=== PATIENT | female | born 1990 ===

== ENCOUNTER 2020-04-06 10:40 | Outpatient (REF) | payer OTHER, SELFPAY | END 2020-04-06 10:41 | disposition home or self-care (01) | LOC: HO.LAB 10:40 | PROVIDERS: Visit Provider Internal Medicine | DX: Z20.828 Contact with and (suspected) exposure to other viral communicable diseases (principal) | CPT/HCPCS: C9803; U0003 ==

== ENCOUNTER 2020-12-22 16:46 | Emergency (ER) | payer OTHER, SELFPAY ==
[2020-12-22 17:35] VITALS: BP 124/75; PULSE 108; RESP 20; TEMP 37; O2SAT 100; BMI 25.6
--- NOTE | 2020-12-22 21:13 | ED_ITS ---
HPI - URI/Sore Throat General Chief Complaint: Fever Stated Complaint: covid symptoms Time Seen by Provider: 12/22/20 17:13 Source: patient Mode of arrival: ambulatory Limitations: language barrier (No tester electronic scale on duty, patient spoke fairly decent Macedonian.) History of Present Illness HPI Narrative: Patient is a 30-year-old female with no significant past medical history complaining of 2 days of a fever with a T-max of 100 degrees, body aches, sinus congestion and headache x2 days. She is also complaining of a sore throat. She denies any shortness of breath, nausea vomiting or diarrhea. She is fully vaccinated for COVID. She denies any sick contacts. Related Data Allergies Allergy/AdvReac Type Severity Reaction Status Date / Time No Known Allergies Allergy Unverified 02/06/20 18:49 [No Known Allergies*] Review of Systems Review of Systems: Yes all other systems are reviewed and are negative PMFSH Past Medical History Medical History No known health problems Social History Social History Advance Directives: No Patient : No Physical Exam Vital Signs: Vital Signs: Last Vital Signs Temp 98.6 F 12/22/20 17:35 Pulse 108 H 12/22/20 17:35 Resp 20 12/22/20 17:35 BP 124/75 12/22/20 17:35 Pulse Ox 100 12/22/20 17:35 Body Mass Index 25.6 Const: General: cooperative, healthy appearing, comfortable, no acute distress and well developed Orientation/consciousness: patient oriented x3 Limitations: no limitations HENMT: Head: Yes normal to inspection Eyes: General: appearance normal, both eyes and all related structures Neck: Neck: Yes normal visual inspection and Yes full ROM Resp: Effort & Inspection: normal respiratory effort and able to speak in complete sentences Auscultation: clear to auscultation bilaterally Cardio: Rate: regular rate Rhythm: regular rhythm Heart sounds: normal S1 and S2 GI: Inspection: Yes normal to inspection Skin: General skin exam: no rashes or lesions noted Neuro: General: patient oriented x3 Extrem: General: Yes normal to inspection Course Course Course Narrative: Patient is a 30-year-old female with no significant past medical history complaining of 2 days of a fever with a T-max of 100 degrees, body aches, sinus congestion and headache x2 days. Vital signs stable except for patient was slightly tachycardic upon arrival to the ED. repeat vitals are stable but again tachy, discussed with patient has lately from dehydration and to make sure she stays well hydrated. Advised if it continues, to call her PCP or return to the ED. Will swab patient and send home, will call if she is positive for COVID. MDM - URI/Sore Throat Lab Data Attestation: I reviewed the patient's lab results. Labs: Lab Results 12/22/20 Range/Units 21:26 COVID-19 (DENISE) Negative (Negative) COVID-19 Clin Com See Note Discharge Plan Discharge Clinical Impression: Upper respiratory infection Qualifiers: URI type: unspecified viral URI Qualified Code(s): J06.9 - Acute upper respiratory infection, unspecified Patient Disposition: Home, Self-Care Instructions: Upper Respiratory Infection (ED), COVID-19 (Coronavirus Disease 2019) (ED) Additional Instructions: We have test you for COVID, I will call you if your test comes back positive. I have attached COVID instructions for you to have just in case her test does come back positive. In the meanwhile, please treat your symptoms in be was sure stay well hydrated. If you have any shortness of breath, chest pain or fever you cannot control with ibuprofen or acetaminophen, please return to the emergency department. Stand Alone Forms: Work/School Release Print Language: Sudanese
[2020-12-22 21:44] LABS: COVID-19 Test Negative (Negative); IDNOW Serial# 08D9AD1C
== END 2020-12-22 21:56 | disposition home or self-care (01) ==
PROVIDERS: Emergency Provider Emergency Medicine
DX: J06.9 Acute upper respiratory infection, unspecified (principal); R50.9 Fever, unspecified; M79.10 Myalgia, unspecified site; Z20.822 Contact with and (suspected) exposure to COVID-19
CPT/HCPCS: 36415; 87635; 99283

== ENCOUNTER 2021-03-16 13:18 | Outpatient (REF) | payer OTHER, SELFPAY | END 2021-03-16 13:19 | disposition home or self-care (01) | LOC: HO.LAB 13:18 | PROVIDERS: PCP Internal Medicine; Visit Provider Internal Medicine | DX: Z20.822 Contact with and (suspected) exposure to COVID-19 (principal) | CPT/HCPCS: C9803; U0003; U0005 ==

== ENCOUNTER 2021-05-20 09:04 | Outpatient (REF) | payer OTHER, SELFPAY ==
--- NOTE | ~2021-05-20 | US_ITS ---
EXAMINATION: US PELVIS CLINICAL INFORMATION: N94.10 - Unspecified dyspareunia. Age 30. Prior history , tubal ligation. LMP 05/13/2021. COMPARISON: Pelvic ultrasound 02/17/2015. TECHNIQUE: Ultrasound of the pelvis is performed using both transabdominal and transvaginal transducers along with Doppler. Transvaginal imaging is performed due to inadequate visualization transabdominally. FINDINGS: Uterus: The uterus is anteverted and measures 7.2 x 5.0 x 6.6 cm. Volume 175 mL. The double wall endometrial thickness is 10 mm. Probable arcuate configuration. The uterus is smooth in contour and has normal myometrial echogenicity. No visible fibroid. There are a few tiny nabothian cysts in the cervix, under 5 mm. Adnexa: Both ovaries are visualized. There is normal color flow to the adnexa. There is no ovarian torsion. There is no pelvic ascites or fluid collection. Right ovary measures 2.9 x 1.9 x 2.5 cm. Volume 7 mL. Left ovary measures 3.0 x 1.7 x 2.1 cm. Volume 6 mL. US/US pelvic and transvaginal IMPRESSION: Unremarkable pelvic ultrasound. No adnexal mass or ascites.
== END 2021-05-20 09:05 | disposition home or self-care (01) ==
LOC: HO.US 09:04
PROVIDERS: PCP Internal Medicine; Visit Provider Internal Medicine
DX: R10.31 Right lower quadrant pain (principal); N94.10 Unspecified dyspareunia
CPT/HCPCS: 76830; 76856

== ENCOUNTER 2021-05-27 08:57 | Outpatient (REF) | payer OTHER, SELFPAY ==
[2021-05-27 12:00] LABS: Binax Internal Control QC Valid; Binax Now Covid-19 Ag Positive (Negative)
== END 2021-05-27 08:58 | disposition home or self-care (01) ==
LOC: HO.LAB 08:57
PROVIDERS: Visit Provider Internal Medicine
DX: Z20.822 Contact with and (suspected) exposure to COVID-19 (principal)
CPT/HCPCS: 36415; C9803

== ENCOUNTER 2021-06-25 13:45 | Outpatient (REF) | payer OTHER, SELFPAY ==
[2021-06-26 12:26] LABS: BV Int Neg Control Negative (Negative); BV Int Pos Control Positive (Positive)
== END 2021-06-25 13:46 | disposition home or self-care (01) ==
LOC: HO.LNP 13:45
PROVIDERS: Visit Provider Nurse Practitioner Family
DX: N89.8 Other specified noninflammatory disorders of vagina (principal)
CPT/HCPCS: 87480; 87510; 87660

== ENCOUNTER 2022-01-08 14:20 | Emergency (ER) | payer OTHER, SELFPAY ==
[2022-01-08 14:23] VITALS: BP 147/96; PULSE 99; RESP 18; TEMP 37; O2SAT 100; BMI 27.4
== END 2022-01-08 19:54 | disposition left against medical advice (07) ==
PROVIDERS: Emergency Provider Emergency Medicine
DX: M25.551 Pain in right hip (principal)
CPT/HCPCS: 99281

== ENCOUNTER 2022-01-12 10:42 | Outpatient (REF) | payer OTHER, SELFPAY ==
[2022-01-13 09:10] LABS: CT PCR NOT DETECTED (Not Detect.); NG PCR NOT DETECTED (Not Detect.)
[2022-01-13 10:49] LABS: BV Int Neg Control Negative (Negative); BV Int Pos Control Positive (Positive)
[2022-01-15 10:16] LABS: HPV mRNA E6/E7 rflx Not Detected (Not Detected)
== END 2022-01-12 10:43 | disposition home or self-care (01) ==
LOC: HO.LAB 10:42
PROVIDERS: Visit Provider Advanced Practice Midwife
DX: Z01.419 Encounter for gynecological examination (general) (routine) without abnormal findings (principal); N92.1 Excessive and frequent menstruation with irregular cycle; Z20.2 Contact with and (suspected) exposure to infections with a predominantly sexual mode of transmission
CPT/HCPCS: 87480; 87491; 87510; 87591; 87624; 87660; 88142

== ENCOUNTER 2022-02-18 13:42 | Outpatient (REF) | payer OTHER, SELFPAY ==
--- NOTE | ~2022-02-18 | US_ITS ---
EXAMINATION: US PELVIS CLINICAL INFORMATION: Right lower quadrant pain; the last menstrual period was on 02/04/2022. COMPARISON: None TECHNIQUE: Ultrasound of the pelvis is performed using both transabdominal and transvaginal transducers along with Doppler. Transvaginal imaging is performed due to inadequate visualization transabdominally. FINDINGS: UTERUS: The uterus is anteverted and measures 8.6 x 5.1 x 7.1 cm. The uterus shows an arcuate configuration. Nabothian cysts are seen within the cervix. The double wall endometrial thickness is 1.2 mm. The uterus is smooth in contour and has normal myometrial echogenicity. No visible fibroid. ADNEXA: Both ovaries are visualized. There is normal color flow to the adnexa. There is no ovarian torsion. There is no pelvic ascites or fluid collection. Right ovary measures 2.6 x 2.0 x 2.2 cm (volume 5.8 mL). Left ovary measures 3.0 x 2.1 x 2.1 cm (volume 6.8 mL). A 1.4 x 1.1 x 1.6 cm corpus luteum cyst is incidentally noted. US/US pelvic and transvaginal IMPRESSION: 1. Nabothian cysts are seen within the cervix. 2. A 1.6 cm in maximal diameter left ovarian benign, corpus luteum cyst is seen, for which no imaging follow-up is recommended. 3. The uterus shows an arcuate configuration.
== END 2022-02-18 13:43 | disposition home or self-care (01) ==
LOC: HO.HMGCX 13:42
PROVIDERS: Visit Provider Advanced Practice Midwife
DX: N92.0 Excessive and frequent menstruation with regular cycle (principal)
CPT/HCPCS: 76830; 76856

== ENCOUNTER → 2022-03-21 13:18 | Outpatient (BNVA) | payer OTHER, SELFPAY | PROVIDERS: PCP Internal Medicine; Visit Provider Advanced Practice Midwife | DX: N92.0 Excessive and frequent menstruation with regular cycle (principal); Z71.2 Person consulting for explanation of examination or test findings | CPT/HCPCS: 99212 ==

== ENCOUNTER 2022-03-22 08:54 | Outpatient (REF) | payer OTHER, SELFPAY ==
[2022-03-22 09:12] LABS: MANUAL DIFF FLAG NO
[2022-03-22 09:27] LABS: Hematocrit 34.2 % (37.0-47.0); Hemoglobin 10.5 g/dl (12.0-16.0); Mean Corpuscular HGB Conc 30.7 g/dl (31.0-35.0); Mean Corpuscular Hemoglobin 24.9 pg (27.0-33.0); Platelet Count 325 X10*3/uL (160-400); Red Blood Count 4.22 X10*6/uL (4.20-5.50); Red Cell Distribution Width 14.8 % (11.0-16.0); White Blood Count 4.7 X10*3/uL (4.8-10.8)
[2022-03-22 09:28] LABS: Basophils Absolute Auto 0.1 X10*3/uL (0.0-0.2); Basophils Percent Auto 1.1 % (0-2); Eosinophils Absolute Auto 0.1 X10*3/uL (0.0-0.4); Eosinophils Percent Auto 2.8 % (0-4); Hematocrit 34.9 % (37.0-47.0); Hemoglobin 10.4 g/dl (12.0-16.0); Lymphocytes Absolute Auto 1.3 X10*3/uL (1.2-4.9); Mean Corpuscular HGB Conc 29.8 g/dl (31.0-35.0); Mean Corpuscular Hemoglobin 24.2 pg (27.0-33.0); Mean Corpuscular Volume 81.4 fL (80.0-98.0); Monocytes Absolute Auto 0.4 X10*3/uL (0.1-1.2); Neutrophils Absolute Auto 2.8 x10*3/uL (2.0-8.3); Neutrophils Percent Auto 60.1 % (45-73); Platelet Count 323 X10*3/uL (160-400); Red Blood Count 4.29 X10*6/uL (4.20-5.50); Red Cell Distribution Width 14.8 % (11.0-16.0); White Blood Count 4.7 X10*3/uL (4.8-10.8)
[2022-03-22 09:53] LABS: Alanine Aminotransferase 18 U/L (0-31); Aspartate Amino Transferase 17 U/L (5-31); Cholesterol 184 mg/dL; HDL Cholesterol 44 mg/dL; Iron 37 mcg/dL (30-160); LDL Cholesterol Calculated 124 mg/dl; Percent Iron Saturation 9 % (15-50); Total Iron Binding Capacity 432 mcg/dL (228-428); Triglycerides 83 mg/dL; Unsaturated Iron Binding 395 ug/dL
[2022-03-22 10:13] LABS: HBc Num1 0.07 S/CO (0.00-0.79); HIV AB/AG Nonreactive (Nonreactive); HIV Num 1 0.08 S/CO (0.00-0.99); Hepatitis B Core Antibody Nonreactive (Nonreactive); ~HepC Num1 0.17 S/CO (0.00-0.79); ~Hepatitis C Antibody Nonreactive (Nonreactive)
[2022-03-22 10:14] LABS: Thyroid Stimulating Hormone 0.86 uIU/mL (0.32-4.0)
[2022-03-22 10:15] LABS: TSH reflex Free T4 0.86 uIU/mL (0.32-4.0); Vitamin D 25-OH Total 7.8 ng/mL (>30)
[2022-03-22 10:52] LABS: Folate 9.5 ng/mL (> or = 4.0); Vitamin B12 496 pg/mL (200-900)
[2022-03-23 07:51] LABS: Syphilis Screen Nonreactive (Nonreactive)
== END 2022-03-22 08:55 | disposition home or self-care (01) ==
LOC: HO.LAB 08:54
PROVIDERS: Absent Provider Internal Medicine; PCP Internal Medicine; Visit Provider Advanced Practice Midwife
DX: Z00.01 Encounter for general adult medical examination with abnormal findings (principal); Z11.4 Encounter for screening for human immunodeficiency virus [HIV]; N92.1 Excessive and frequent menstruation with irregular cycle; R53.83 Other fatigue; Z20.2 Contact with and (suspected) exposure to infections with a predominantly sexual mode of transmission
CPT/HCPCS: 36415; 80061; 82306; 82607; 82746; 83540; 84443; 84450; 84460; 85025; 85027; 86704; 86780; 86803; 87389

== ENCOUNTER 2022-06-29 09:34 | Emergency (ER) | payer OTHER, SELFPAY ==
[2022-06-29 09:35] VITALS: BP 137/87; PULSE 130; RESP 18; TEMP 36.1; O2SAT 98; BMI 27.4
--- NOTE | 2022-06-29 10:11 | ED.NAVMDI ---
HPI - Nausea/Vomiting/Diarrhea General Chief complaint: Nausea/Vomiting/Diarrhea Stated complaint: excessive diarrhea Time Seen by Provider: 06/29/22 10:05 Source: patient Mode of arrival: ambulatory Limitations: no limitations History of Present Illness HPI Narrative: This is a 31 years old female presented to the ED with chief complaint of watery diarrhea since yesterday she also has some nausea MD elicited complaint: nausea and diarrhea Onset (ago): day(s) (1) Description of diarrhea: watery Associated nausea: Yes Quality: cramping Associated symptoms: denies other symptoms Related Data Previous Rx's Medication Instructions Recorded cholecalciferol (vitamin D3) 1,250 1,250 mcg PO QWEEK 3 months #13 04/05/22 mcg (50,000 unit) capsule caps ferrous sulfate 325 mg (65 mg 325 mg PO DAILY #90 tabs 04/05/22 iron) tablet,delayed release Allergies Allergy/AdvReac Type Severity Reaction Status Date / Time No Known Allergies Allergy Verified 04/03/22 22:57 [No Known Allergies*] Review of Systems Constitutional: Constitutional: Reports no additional constitutional complaints Cardiovascular: Cardiovascular: Reports no additional cardiovascular complaints Gastrointestinal: Gastrointestinal: Reports no additional gastrointestinal complaints and Reports nausea PMFSH Past Medical History Medical History Dyspareunia, female Fatigue Muscle strain of right upper back Surgical History Hx of tubal ligation Family History Family History Other No pertinent family history in first degree relatives Social History Social History Housing: House Alcohol intake: unknown Patient Tobacco Use Status: Never used Tobacco Smoked in Last 30 Days: No e-Cigarette/Vaping Use: Never Used Use of substances other than those prescribed or required for medical reasons: Unknown Advance Directives: No Advance Directives Information Provided: Yes Current occupational status: employed Cognitive needs: No Hearing needs: No Vision needs: No Physical Exam Vital Signs: Vital Signs: Last Vital Signs Temp 99.2 F 06/29/22 12:20 Pulse 108 H 06/29/22 12:20 Resp 18 06/29/22 14:00 BP 114/63 06/29/22 12:20 Pulse Ox 98 06/29/22 09:35 O2 Del Method 06/29/22 12:20 BMI result Body Mass Index 27.4 Const: General: cooperative, comfortable, no acute distress and well developed Nutritional Appearance: well nourished Orientation/consciousness: patient oriented x3 HEENT: Head: Yes normal to inspection General nose exam: Normal external nose present Face and sinus: Yes normal facial exam Mouth: Normal oral and palatal mucosa present Neck: Neck: Yes normal visual inspection and Yes full ROM Chest: Chest palpation & inspection: normal inspection of the chest Resp: Auscultation: clear to auscultation bilaterally Cardio: Jugular venous distension: no JVD Rate: regular rate Rhythm: regular rhythm GI: Inspection: Yes normal to inspection Palpation (GI): Soft to palpation, not firm, nontender and no guarding Skin: General skin exam: no rashes or lesions noted, elasticity normal and turgor normal Neuro: General: patient oriented x3 Cranial nerves: Yes CN's II-XII intact bilaterally Course Reevaluation(s) Reevaluation #1: feels better Time: 13:55 Medications Administered Discontinued Medications Generic Name Dose Route Start Last Admin Trade Name Freq PRN Reason Stop Dose Admin Sodium Chloride 1,000 mls @ 999 mls/hr 06/29/22 10:15 06/29/22 12:14 Ns IVCONT 06/29/22 11:15 Infused .Q1H1M QUINN Infusion Loperamide HCl 2 mg 06/29/22 10:10 06/29/22 10:37 Loperamide Hcl 2 Mg Capsule PO 06/29/22 10:11 2 mg ONCE ONE Administration Ondansetron HCl 4 mg 06/29/22 10:10 06/29/22 10:34 Ondansetron Hcl 4 Mg/2 Ml Vial IVPUSH 06/29/22 10:11 4 mg ONCE ONE Administration Medical Decision Making Medical Decision Making [facility] Narrative: Patient presented with diarrhea and nausea will get labs will hydrate and reassess Differential Diagnosis Differential Diagnoses: The differential diagnosis associated with the presentation includes Admission/Observation Consideration of admission/observation: Escalation of care including admission/observation considered Lab Data MDM Lab Attestation statement: I reviewed the patient's lab results. 06/29/22 10:29 06/29/22 10:29 Labs: Lab Results 06/29/22 06/29/22 06/29/22 Range/Units 10:25 10:25 10:25 WBC (4.8-10.8) X10*3/uL RBC (4.20-5.50) X10*6/uL Hgb (12.0-16.0) g/dl Hct (37.0-47.0) % MCV (80.0-98.0) fL MCH (27.0-33.0) pg MCHC (31.0-35.0) g/dl RDW (11.0-16.0) % Plt Count (160-400) X10*3/uL MPV (9.4-12.3) fL Immature Gran % (Auto) (0.0-0.4) % Neut % (Auto) (45-73) % Lymph % (Auto) (20-40) % [place] % (Auto) (2-11) % Eos % (Auto) (0-4) % Baso % (Auto) (0-2) % Lymph # (Auto) (1.2-4.9) X10*3/uL [place] # (Auto) (0.1-1.2) X10*3/uL Eos # (Auto) (0.0-0.4) X10*3/uL Baso # (Auto) (0.0-0.2) X10*3/uL Abs Immat Gran (auto) (0.00-0.03) X10*3/uL Absolute Neuts (auto) (2.0-8.3) x10*3/uL Absolute Nucleated RBC (0.0-0.012) X10*3/uL Nucleated RBC % (auto) (0.0-0.2) /100WBC Sodium (135-145) mmol/L Potassium (3.3-5.1) mmol/L Chloride (96-108) mmol/L Carbon Dioxide (22-29) mmol/L Anion Gap (12-20) BUN (9-16) mg/dL Creatinine (0.5-1.4) mg/dL Estim Creat Clear Calc Estimated GFR Random Glucose (60-115) mg/dL Calcium (8.4-10.2) mg/dL Total Bilirubin (0.0-1.0) mg/dL AST (5-31) U/L ALT (0-31) U/L Alkaline Phosphatase (39-117) U/L Total Protein (6.5-8.0) g/dL Albumin (3.5-5.0) g/dL Beta HCG, Quant mIU/mL Urine Color Urine Appearance Urine pH (5.0-9.0) Ur Specific [place] (1.005-1.025) Urine Protein (Neg-Trace) mg/dL Urine Glucose (UA) (Negative) mg/dL Urine Ketones (Negative) mg/dL Urine Blood (Negative) Urine Nitrite (Negative) Ur Leukocyte Esterase (Negative) Urine Test (NEGATIVE) Stool Leukocytes, Qual NEGATIVE (NEGATIVE) Stl C. cayetanensis PCR Not Detected (Not Detect.) Stool Rotavirus A PCR Not Detected (Not Detect.) Stl Adenov F 40/41 PCR Not Detected (Not Detect.) Stool Astrovirus (PCR) Not Detected (Not Detect.) Stool Campylobacter PCR Not Detected (Not Detect.) Stool Cryptosporidium PCR Not Detected (Not Detect.) Stl Sh Tox Pr E STEC PCR Not Detected (Not Detect.) Stool E coli O157 PCR Not applicable (Not Detect.) Stl Enterotoxigenic E PCR Not Detected (Not Detect.) Stool EPEC (PCR) Not Detected (Not Detect.) Stool EAEC (PCR) Not Detected (Not Detect.) Stl E. histolytica PCR Not Detected (Not Detect.) Stool Giardia Lamblia PCR Not Detected (Not Detect.) Stl P. shigelloides PCR Not Detected (Not Detect.) Stool Salmonella PCR Not Detected (Not Detect.) Stool Sapovirus (PCR) Not Detected (Not Detect.) Stl Shigella/EIEC PCR Not Detected (Not Detect.) St Y.enterocolitica PCR Not Detected (Not Detect.) Stool Vibrio (PCR) Not Detected (Not Detect.) Stl Vibrio cholerae PCR Not Detected (Not Detect.) Stl Norovirus GI/GII PCR Detected A (Not Detect.) C. difficile Tox B Gene NEGATIVE (Negative) 06/29/22 06/29/22 06/29/22 Range/Units 10:29 10:29 11:35 WBC 5.8 (4.8-10.8) X10*3/uL RBC 4.64 (4.20-5.50) X10*6/uL Hgb 13.2 D (12.0-16.0) g/dl Hct 39.6 (37.0-47.0) % MCV 85.3 (80.0-98.0) fL MCH 28.4 (27.0-33.0) pg MCHC 33.3 (31.0-35.0) g/dl RDW 15.0 (11.0-16.0) % Plt Count 267 (160-400) X10*3/uL MPV 11.0 (9.4-12.3) fL Immature Gran % (Auto) 0.2 (0.0-0.4) % Neut % (Auto) 78.8 H (45-73) % Lymph % (Auto) 12.7 L (20-40) % [place] % (Auto) 6.8 (2-11) % Eos % (Auto) 1.2 (0-4) % Baso % (Auto) 0.3 (0-2) % Lymph # (Auto) 0.7 L (1.2-4.9) X10*3/uL [place] # (Auto) 0.4 (0.1-1.2) X10*3/uL Eos # (Auto) 0.1 (0.0-0.4) X10*3/uL Baso # (Auto) 0.0 (0.0-0.2) X10*3/uL Abs Immat Gran (auto) 0.01 (0.00-0.03) X10*3/uL Absolute Neuts (auto) 4.5 (2.0-8.3) x10*3/uL Absolute Nucleated RBC 0.000 (0.0-0.012) X10*3/uL Nucleated RBC % (auto) 0.0 (0.0-0.2) /100WBC Sodium 136 (135-145) mmol/L Potassium 3.8 (3.3-5.1) mmol/L Chloride 106 (96-108) mmol/L Carbon Dioxide 19 L (22-29) mmol/L Anion Gap 15 (12-20) BUN 16 (9-16) mg/dL Creatinine 0.76 (0.5-1.4) mg/dL Estim Creat Clear Calc 95.1 Estimated GFR > 60 Random Glucose 97 (60-115) mg/dL Calcium 9.5 (8.4-10.2) mg/dL Total Bilirubin 1.5 H (0.0-1.0) mg/dL AST 19 (5-31) U/L ALT 27 (0-31) U/L Alkaline Phosphatase 57 (39-117) U/L Total Protein 8.1 H (6.5-8.0) g/dL Albumin 4.7 (3.5-5.0) g/dL Beta HCG, Quant < 2 mIU/mL Urine Color Yellow Urine Appearance Turbid Urine pH 5.5 (5.0-9.0) Ur Specific [place] >= 1.030 H (1.005-1.025) Urine Protein Trace (Neg-Trace) mg/dL Urine Glucose (UA) Negative (Negative) mg/dL Urine Ketones Negative (Negative) mg/dL Urine Blood Negative (Negative) Urine Nitrite Negative (Negative) Ur Leukocyte Esterase Negative (Negative) Urine Test (NEGATIVE) Stool Leukocytes, Qual (NEGATIVE) Stl C. cayetanensis PCR (Not Detect.) Stool Rotavirus A PCR (Not Detect.) Stl Adenov F 40/41 PCR (Not Detect.) Stool Astrovirus (PCR) (Not Detect.) Stool Campylobacter PCR (Not Detect.) Stool Cryptosporidium PCR (Not Detect.) Stl Sh Tox Pr E STEC PCR (Not Detect.) Stool E coli O157 PCR (Not Detect.) Stl Enterotoxigenic E PCR (Not Detect.) Stool EPEC (PCR) (Not Detect.) Stool EAEC (PCR) (Not Detect.) Stl E. histolytica PCR (Not Detect.) Stool Giardia Lamblia PCR (Not Detect.) Stl P. shigelloides PCR (Not Detect.) Stool Salmonella PCR (Not Detect.) Stool Sapovirus (PCR) (Not Detect.) Stl Shigella/EIEC PCR (Not Detect.) St Y.enterocolitica PCR (Not Detect.) Stool Vibrio (PCR) (Not Detect.) Stl Vibrio cholerae PCR (Not Detect.) Stl Norovirus GI/GII PCR (Not Detect.) C. difficile Tox B Gene (Negative) 06/29/22 Range/Units 11:35 WBC (4.8-10.8) X10*3/uL RBC (4.20-5.50) X10*6/uL Hgb (12.0-16.0) g/dl Hct (37.0-47.0) % MCV (80.0-98.0) fL MCH (27.0-33.0) pg MCHC (31.0-35.0) g/dl RDW (11.0-16.0) % Plt Count (160-400) X10*3/uL MPV (9.4-12.3) fL Immature Gran % (Auto) (0.0-0.4) % Neut % (Auto) (45-73) % Lymph % (Auto) (20-40) % [place] % (Auto) (2-11) % Eos % (Auto) (0-4) % Baso % (Auto) (0-2) % Lymph # (Auto) (1.2-4.9) X10*3/uL [place] # (Auto) (0.1-1.2) X10*3/uL Eos # (Auto) (0.0-0.4) X10*3/uL Baso # (Auto) (0.0-0.2) X10*3/uL Abs Immat Gran (auto) (0.00-0.03) X10*3/uL Absolute Neuts (auto) (2.0-8.3) x10*3/uL Absolute Nucleated RBC (0.0-0.012) X10*3/uL Nucleated RBC % (auto) (0.0-0.2) /100WBC Sodium (135-145) mmol/L Potassium (3.3-5.1) mmol/L Chloride (96-108) mmol/L Carbon Dioxide (22-29) mmol/L Anion Gap (12-20) BUN (9-16) mg/dL Creatinine (0.5-1.4) mg/dL Estim Creat Clear Calc Estimated GFR Random Glucose (60-115) mg/dL Calcium (8.4-10.2) mg/dL Total Bilirubin (0.0-1.0) mg/dL AST (5-31) U/L ALT (0-31) U/L Alkaline Phosphatase (39-117) U/L Total Protein (6.5-8.0) g/dL Albumin (3.5-5.0) g/dL Beta HCG, Quant mIU/mL Urine Color Urine Appearance Urine pH (5.0-9.0) Ur Specific [place] (1.005-1.025) Urine Protein (Neg-Trace) mg/dL Urine Glucose (UA) (Negative) mg/dL Urine Ketones (Negative) mg/dL Urine Blood (Negative) Urine Nitrite (Negative) Ur Leukocyte Esterase (Negative) Urine Test NEGATIVE (NEGATIVE) Stool Leukocytes, Qual (NEGATIVE) Stl C. cayetanensis PCR (Not Detect.) Stool Rotavirus A PCR (Not Detect.) Stl Adenov F 40/41 PCR (Not Detect.) Stool Astrovirus (PCR) (Not Detect.) Stool Campylobacter PCR (Not Detect.) Stool Cryptosporidium PCR (Not Detect.) Stl Sh Tox Pr E STEC PCR (Not Detect.) Stool E coli O157 PCR (Not Detect.) Stl Enterotoxigenic E PCR (Not Detect.) Stool EPEC (PCR) (Not Detect.) Stool EAEC (PCR) (Not Detect.) Stl E. histolytica PCR (Not Detect.) Stool Giardia Lamblia PCR (Not Detect.) Stl P. shigelloides PCR (Not Detect.) Stool Salmonella PCR (Not Detect.) Stool Sapovirus (PCR) (Not Detect.) Stl Shigella/EIEC PCR (Not Detect.) St Y.enterocolitica PCR (Not Detect.) Stool Vibrio (PCR) (Not Detect.) Stl Vibrio cholerae PCR (Not Detect.) Stl Norovirus GI/GII PCR (Not Detect.) C. difficile Tox B Gene (Negative) Discharge Plan Discharge Clinical Impression: Diarrhea, Norovirus Patient Disposition: Home, Self-Care Instructions: Acute Diarrhea (ED) Prescriptions: No Action ferrous sulfate 325 mg (65 mg iron) tablet,delayed release (DR/EC) 325 mg PO DAILY Qty: 90 0RF cholecalciferol (vitamin D3) 1,250 mcg (50,000 unit) capsule 1,250 mcg PO QWEEK 90 Days Qty: 13 0RF Referrals: Oralia Youngblood MD [Primary Care Provider] - Stand Alone Forms: Work/School Release Interventions: ED Discharge Assessment Last Done: 06/29/22 14:08 Discharge Date/Time: 06/29/22 14:09
[2022-06-29 10:16] VITALS: RESP 18
[2022-06-29] MEDS: 0.9 % Sodium Chloride 1,000 ML 999 ML IVCONT (10:31)
[2022-06-29] MEDS: ondansetron HCL 4 MG/2 ML VIAL IVPUSH (10:34)
[2022-06-29 10:35] LABS: MANUAL DIFF FLAG NO
[2022-06-29] MEDS: Loperamide HCl 2 MG CAPSULE PO (10:37)
[2022-06-29 10:39] LABS: Basophils Percent Auto 0.3 % (0-2); Eosinophils Absolute Auto 0.1 X10*3/uL (0.0-0.4); Eosinophils Percent Auto 1.2 % (0-4); Hematocrit 39.6 % (37.0-47.0); Hemoglobin 13.2 g/dl (12.0-16.0); Imm Gran Abs Auto 0.01 X10*3/uL (0.00-0.03); Imm Gran Pct Auto 0.2 % (0.0-0.4); Lymphocytes Absolute Auto 0.7 X10*3/uL (1.2-4.9); Lymphocytes Percent Auto 12.7 % (20-40); Mean Corpuscular HGB Conc 33.3 g/dl (31.0-35.0); Mean Corpuscular Hemoglobin 28.4 pg (27.0-33.0); Mean Corpuscular Volume 85.3 fL (80.0-98.0); Monocytes Absolute Auto 0.4 X10*3/uL (0.1-1.2); Monocytes Percent Auto 6.8 % (2-11); Neutrophils Absolute Auto 4.5 x10*3/uL (2.0-8.3); Neutrophils Percent Auto 78.8 % (45-73); Platelet Count 267 X10*3/uL (160-400); Red Blood Count 4.64 X10*6/uL (4.20-5.50); White Blood Count 5.8 X10*3/uL (4.8-10.8)
[2022-06-29 11:37] LABS: CDiff Gene PCR NEGATIVE (Negative)
[2022-06-29 12:09] LABS: UPreg QC Valid YES; Urine Pregnancy NEGATIVE (NEGATIVE)
[2022-06-29 12:20] VITALS: BP 114/63; PULSE 108; RESP 20; TEMP 37.3
[2022-06-29 12:34] LABS: Adenovirus F 40/41 Not Detected (Not Detect.); Astrovirus Not Detected (Not Detect.); Campylobacter Not Detected (Not Detect.); Cryptosporidium Not Detected (Not Detect.); Cyclospora cayetanensis Not Detected (Not Detect.); E. coli EAEC Not Detected (Not Detect.); E. coli EPEC Not Detected (Not Detect.); E. coli ETEC Not Detected (Not Detect.); E. coli STEC Not Detected (Not Detect.); Entamoeba histolytica Not Detected (Not Detect.); Giardia lamblia Not Detected (Not Detect.); Leukocytes Stool Qualitative NEGATIVE (NEGATIVE); Plesiomonas shigelloides Not Detected (Not Detect.); Rotavirus A Not Detected (Not Detect.); Salmonella Not Detected (Not Detect.); Sapovirus Not Detected (Not Detect.); Shigella sp./EIEC Not Detected (Not Detect.); Vibrio Not Detected (Not Detect.); Vibrio Cholerae Not Detected (Not Detect.); Yersinia enterocolitica Not Detected (Not Detect.)
--- NOTE | 2022-06-29 12:50 | PC.NURSE ---
contact made to Lab. Per Kayla Specimen shows received-will check with lab techs.
[2022-06-29 13:09] LABS: Norovirus GI/GII Detected (Not Detect.)
[2022-06-29 13:12] LABS: Alanine Aminotransferase 27 U/L (0-31); Albumin Level 4.7 g/dL (3.5-5.0); Alkaline Phosphatase 57 U/L (39-117); Anion Gap 15 (12-20); Aspartate Amino Transferase 19 U/L (5-31); Bilirubin Total 1.5 mg/dL (0.0-1.0); Blood Urea Nitrogen 16 mg/dL (9-16); Calcium 9.5 mg/dL (8.4-10.2); Carbon Dioxide 19 mmol/L (22-29); Chloride 106 mmol/L (96-108); Creatinine Clr Calc Pharmacy 95.1; Estimated Glomerular Filt Rate > 60; Glucose Random 97 mg/dL (60-115); HCG Quantitative < 2 mIU/mL; Potassium 3.8 mmol/L (3.3-5.1); Sodium 136 mmol/L (135-145); Total Protein 8.1 g/dL (6.5-8.0)
--- NOTE | 2022-06-29 13:23 | MHC.IC ---
Patient is positive for Norovirus. Please wash hands with SOAP and WATER after all care and use BLEACH to sanitize surfaces.
[2022-06-29 14:00] VITALS: RESP 18
[2022-06-29 15:31] LABS: Appearance Urine Turbid; Color Urine Yellow; Glucose Urine UA Negative (Negative); Leukocyte Esterase Urine Negative (Negative); Nitrite Urine Negative (Negative); PH 5.5 (5.0-9.0); Specific Gravity - Urine >= 1.030 (1.005-1.025); Urine Blood Negative (Negative); Urine Ketones Negative (Negative); Urine Protein Trace mg/dL (Neg-Trace)
== END 2022-06-29 14:09 | disposition home or self-care (01) ==
PROVIDERS: Emergency Provider Emergency Medicine; PCP Internal Medicine
DX: R19.7 Diarrhea, unspecified (principal); A08.11 Acute gastroenteropathy due to Norwalk agent; R11.0 Nausea
CPT/HCPCS: 36415; 80053; 81003; 81025; 84702; 85025; 87493; 87507; 89055; 96361; 96374; 99284; J2405

== ENCOUNTER 2022-09-13 12:02 | Outpatient (REF) | payer OTHER, SELFPAY ==
[2022-09-13 14:40] LABS: Vitamin D 25-OH Total 15.6 ng/mL (>30)
== END 2022-09-13 12:03 | disposition home or self-care (01) ==
LOC: HO.HMGCLDS 12:02
PROVIDERS: PCP Internal Medicine; Visit Provider Internal Medicine
DX: E55.9 Vitamin D deficiency, unspecified (principal); R53.83 Other fatigue
CPT/HCPCS: 36415; 82306; 84443

== ENCOUNTER 2022-10-13 19:11 | Emergency (ER) | payer OTHER, SELFPAY ==
--- NOTE | ~2022-10-13 | XR_ITS ---
EXAMINATION: XR CHEST CLINICAL INFORMATION: Cough COMPARISON: None available. TECHNIQUE: 2 views of the chest were obtained. FINDINGS: No significant abnormality is noted involving the heart, lungs, mediastinum, bony thorax or soft tissues. XR/XR chest 2V IMPRESSION: Unremarkable examination.
[2022-10-13 19:14] VITALS: BP 135/94; PULSE 105; RESP 19; TEMP 36.2; O2SAT 99; BMI 27.4
--- NOTE | 2022-10-13 19:14 | ED_ITS ---
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 No sick contacts, no recent travel. Related Data Previous Rx's Medication Instructions Recorded cholecalciferol (vitamin D3) 1,250 1,250 mcg PO QWEEK 3 months #13 04/05/22 mcg (50,000 unit) capsule caps albuterol sulfate 90 mcg/actuation 1 inh inhalation QID PRN shortness 10/13/22 aerosol inhaler of breath or wheezing #8.5 grams azithromycin 250 mg tablet See Rx Instructions PO .COMPLEX #6 10/13/22 (Zithromax Z-Gaurav) tabs prednisone 20 mg tablet 20 mg PO BID #10 tabs 10/13/22 Allergies Allergy/AdvReac Type Severity Reaction Status Date / Time No Known Allergies Allergy Verified 10/13/22 19:14 [No Known Allergies*] Review of Systems Review of Systems: All other systems are reviewed and are negative Constitutional: Reports as per HPI and Reports no additional constitutional complaints Eyes: Reports as per HPI and Reports no additional eye complaints Reports system reviewed and no additional complaints, except as documented Cardiovascular: Reports as per HPI and Reports no additional cardiovascular complaints Respiratory: Reports as per HPI and Reports no additional respiratory complaints Gastrointestinal: Reports as per HPI and Reports no additional gastrointestinal complaints Genitourinary: Reports no additional female genitourinary complaints Musculoskeletal: Reports no additional musculoskeletal complaints Skin/Breast: Reports system reviewed and no additional complaints, except as d ocu Psychiatric: Reports no additional psychiatric complaints Endocrine: Reports no additional endocrine complaints Hematologic/Lymphatic: Reports no additional hematologic/lymphatic complaints Allergic/Immunologic: Reports no additional allergic/immunologic complaints Reports system reviewed and no additional complaints, except as documented and Reports Abnormal speech present [facility] Past Medical History Medical History Dyspareunia, female Fatigue History of anemia Muscle strain of right upper back Vitamin D deficiency Surgical History Hx of tubal ligation Family History Family History Other No pertinent family history in first degree relatives Social History Social History Housing: House Alcohol intake: unknown Patient Tobacco Use Status: Never used Tobacco e-Cigarette/Vaping Use: Never Used Advance Directives: No Advance Directives Information Provided: No Current occupational status: employed Cognitive needs: No Hearing needs: No Vision needs: No Physical Exam Vital Signs: Vital Signs: Last Vital Signs Temp 97.2 F 10/13/22 19:14 Pulse 105 H 10/13/22 19:14 Resp 19 10/13/22 19:14 BP 135/94 H 10/13/22 19:14 Pulse Ox 99 10/13/22 19:14 O2 Del Method Room Air 10/13/22 19:14 BMI result Body Mass Index 27.4 Vital signs have been reviewed as appeared to be correct. Blood pressure normal. Heart rate normal. Respiration rate normal. Temperature normal. Oxygen saturation normal. Appearance: Alert. Oriented X3. No acute distress. Head: Normal external exam. Normocephalic. Atraumatic. No Rivas signs noted. No raccoon eyes noted Eyes: PERRLA. EOMI. Conjunctiva and sclera normal. Eyelids normal. ENT: TM's Normal. Pharynx normal. Uvula midline. Moist mucous membranes. No trismus noted. No drooling noted. No muffled voice noted. Neck: Normal inspection. Neck supple. FROM. No adenopathy. Thyroid Normal. No meningeal signs. No neck mass noted. CVS: Normal heart rate and rhythm. Heart sound normal. No murmurs noted. Pulses normal throughout. Respiratory: No respiratory distress. Painless inspiration. Breath sounds normal. Minimal expiratory wheezing with prolonged expiration. Chest nontender. No accessory muscle usage noted or decreased air movement noted. Abdomen: Soft and nontender. Bowel sounds normal in all 4 quadrants. No distention noted. No organomegaly noted. No visible injury noted. Back: No CVA tenderness. Full range of motion noted. Skin: Skin warm and dry. Normal skin color. Normal skin turgor. No rashes/lesions/lacerations noted. Extremities: No lower extremity edema. Extremities exhibit normal range of motion. Extremities nontender. Neuro: Oriented X 3. Cranial nerve exam: II-XII are grossly intact No motor deficit. No sensory deficit. Reflexes normal. Course Course Course Narrative: This is a rapid medical exam. Deferred additional HPI, ROS, PE to primary provider. 32 yo female with history of anemia here with cough, congestion, chest discomfort/back pain with coughing x 3 days. No fevers/chills. NO OCP use, recent travel, leg swelling/leg pain. Will obtain CXR, viral testing. VSS Reevaluation(s) Reevaluation #1: Upper respiratory symptoms, negative for viral respiratory panel, chest x-ray is unremarkable. Patient is nonsmoker will treat bronchitis with Z-Gaurav/prednisone/bronchodilator. Time: 22:42 Medical Decision Making Differential Diagnosis Differential Diagnoses: The differential diagnosis associated with the presentation includes (Pneumonia, pneumothorax, viral bronchitis.) Lab Data MDM Lab Attestation statement: I reviewed the patient's lab results. Labs: Lab Results 10/13/22 Range/Units 19:26 Influenza Type A (PCR) NEGATIVE (Negative) Influenza Type B (PCR) NEGATIVE (Negative) RSV RNA Qual (PCR) NEGATIVE (Negative) SARS-CoV-2 RNA (RT-PCR) NEGATIVE (Negative) Independent Interpretation I performed an independent interpretation of an: Plain X-Ray (Chest: No acute intracranial pathology.) Radiology Impression Discussion of test interpretation with radiology: I have reviewed the radiologist's reading. Discharge Plan Discharge Clinical Impression: Bronchitis Patient Disposition: Home, Self-Care Instructions: Acute Bronchitis (ED) Prescriptions: New prednisone 20 mg tablet 20 mg PO BID Qty: 10 0RF azithromycin [Zithromax Z-Gaurav] 250 mg tablet See Rx Instructions .ROUTE .COMPLEX Qty: 6 0RF Rx Instructions: For 250 mg dose pack: take 500 mg today (day 1), then 250 mg for 4 days (days 2-5) albuterol sulfate 90 mcg/actuation HFA aerosol inhaler 1 inh inhalation QID PRN (Reason: shortness of breath or wheezing) Qty: 8.5 0RF No Action cholecalciferol (vitamin D3) 1,250 mcg (50,000 unit) capsule 1,250 mcg PO QWEEK 90 Days Qty: 13 0RF Referrals: Oralia Youngblood MD [Primary Care Provider] - Stand Alone Forms: Work/School Release
[2022-10-13 20:21] LABS: Influenza A PCR NEGATIVE (Negative); Influenza B PCR NEGATIVE (Negative); Resp Syncy Virus RNA Qual PCR NEGATIVE (Negative); SARS COV2 PCR INHOUSE NEGATIVE (Negative)
== END 2022-10-13 22:57 | disposition home or self-care (01) ==
PROVIDERS: Nurse Practitioner Family; Emergency Provider Emergency Medicine; PCP Internal Medicine
DX: J40 Bronchitis, not specified as acute or chronic (principal); Z20.822 Contact with and (suspected) exposure to COVID-19; Z20.828 Contact with and (suspected) exposure to other viral communicable diseases; Z79.899 Other long term (current) drug therapy
CPT/HCPCS: 0241U; 71046; 99282; 99283

== ENCOUNTER 2023-01-05 14:33 | Outpatient (AMB) | payer OTHER, SELFPAY ==
--- NOTE | 2023-01-05 14:39 | A.OFFVIS_ITS ---
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 Not in pain today. LMP 12/25/22. She was seen 03/12 with same complaints of HMB, was offered BC and declined at the time. Denies frequency of urination, constipation, diarrhea, fever, vaginal itching, discharge or odor. Menses lasting 8 day 3/8 are heavy and painful. H/O Tubal ligation. Has used BC in the past. She denies any contraindications to control such as: migraines with aura, history of DVT or pulmonary emboli, high blood pressure, liver disease, thrombolic disorders, Lupus, +GERSON, or smoking. [facility] Medical History Dyspareunia, female Fatigue History of anemia Menorrhagia Muscle strain of right upper back Pelvic pain Vitamin D deficiency Surgical History Hx of tubal ligation Family History Other No pertinent family history in first degree relatives Social History Housing: House Alcohol intake: unknown Patient Tobacco Use Status: Never used Tobacco e-Cigarette/Vaping Use: Never Used Current occupational status: employed Cognitive needs: No Hearing needs: No Vision needs: No Female Reproductive History Menstrual Age of Menarche: 7 Duration of menses: 8-10 days Date of last menstrual period: 12/25/22 control method: permanent sterilization Permanent Sterilization: BTL Total pregnancies: 3 Full term: 3 Number of Living Children: 3 Date of last pap smear: 01/12/22 (neg pap and hpv) Physical Exam Vital Signs: Last Vital Signs BP 120/72 01/05/23 14:40 BMI result Body Mass Index 29.3 Const General: cooperative, healthy appearing, comfortable, no acute distress, well developed, alert and awake General: Yes bladder normal to palpation External Female Exam: normal external appearance and normal appearance of the urethra Speculum Exam - Vagina: normal appearance of the vagina, normal palpation and normal vaginal discharge Speculum Exam - Cervix: normal appearance of the cervix and normal palpation Bimanual exam- vagina & uterus: normal bimanual exam, normal palpation, bladder normal to palpation and normal palpation Bimanual Exam- Adnexa, other: normal adnexae and no masses Assessment & Plan Assessment & Plan (1) Menorrhagia: Code(s): N92.0 - Excessive and frequent menstruation with regular cycle Plan: Discussed: Workup including labs and Pelvic US. Labs and US ordered and patient is agreeable to have work up done. Follow up in person for results. BV testing and GC/CT panel done today. Await results and treat accordingly. (2) control counseling: Code(s): Z30.09 - Encounter for other general counseling and advice on contraception Plan: Reviewed different BC options for cycle control including IUD. She opts for Apri OCP. Instructed to start the pill within the first 5 days of the menstrual period. Recommended to take pill at same time every day and with food to prevent stomach upset. Switch to bedtime intake with food if still experiencing nausea. Consider setting the cell phone for alerts as a reminder to take the pill at the same time. Use a back up method (condoms or abstinence if needed) if any late or missed doses until the end of the pill pack. Take the dose as soon as possible, and take your regular pill on time. If you miss the pill often, then consider another option of control. Instructed patient to take for at least 3 months the body is acclimated to it. Most side effects go away with time in the first three months. Warnings: go to ER if and loss of vision/blindness, severe headache, chest pain or difficulty breathing, severe abdominal pain, or any pain or swelling in an extremity. Return in 3 months for pill check, or sooner if any concerns. Rx for Apri sent to pharmacy. All of her questions and concerns were addressed to the best of my ability and shared decision making. She is agreeable to plan of care. (3) Pelvic pain: Code(s): R10.2 - Pelvic and perineal pain Plan: Advised to use 3 ibuprofen 200 mg (600 milligrams) with food for pain management. Rx sent to pharmacy. Orders: Orders US pelvic and transvaginal Today N92.0 - Excessive and frequent menstruation with regular cycle, R10.2 - Pelvic and perineal pain Thyroid Stimulating Hormone Today N92.0 - Excessive and frequent menstruation with regular cycle, N92.1 - Excessive and frequent menstruation with irregular cycle Complete Blood Count no Diff Today N92.0 - Excessive and frequent menstruation with regular cycle HCG Quantitative Today N92.0 - Excessive and frequent menstruation with regular cycle Bacterial Vaginosis Panel Today N92.0 - Excessive and frequent menstruation with regular cycle, R10.2 - Pelvic and perineal pain CT NG by PCR Today N92.0 - Excessive and frequent menstruation with regular cycle, R10.2 - Pelvic and perineal pain Medications: New ibuprofen take medication 1-3 days of your menses for cramping with food 600 mg PO Q6H PRN 60 tabs 0RF pain desogestrel-ethinyl estradiol 0.15-0.03 mg (Apri) 1 tab PO DAILY 90 tabs 0RF 90 days Coding Level of Care Code Est Pt Level 4 (49129) Diagnoses Menorrhagia N92.0 control counseling Z30.09 Pelvic pain R10.2
[2023-01-05 14:40] VITALS: BP 120/72; BMI 29.3
== END 2023-01-06 08:39 | disposition home or self-care (01) ==
LOC: HO.HWS 14:33
PROVIDERS: PCP Internal Medicine; Visit Provider Advanced Practice Midwife
DX: N92.0 Excessive and frequent menstruation with regular cycle (principal); Z30.09 Encounter for other general counseling and advice on contraception; R10.2 Pelvic and perineal pain
CPT/HCPCS: 99214

== ENCOUNTER 2023-01-05 14:33 | Outpatient (REF) | payer OTHER, SELFPAY ==
[2023-01-06 12:20] LABS: CT PCR NOT DETECTED (Not Detect.); NG PCR NOT DETECTED (Not Detect.)
[2023-01-06 15:17] LABS: BV Int Neg Control Negative (Negative); BV Int Pos Control Positive (Positive)
== END 2023-01-05 14:34 | disposition home or self-care (01) ==
LOC: HO.LAB 14:33
PROVIDERS: PCP Internal Medicine; Visit Provider Advanced Practice Midwife
DX: Z30.09 Encounter for other general counseling and advice on contraception (principal); R10.2 Pelvic and perineal pain; N92.0 Excessive and frequent menstruation with regular cycle
CPT/HCPCS: 0353U; 87480; 87510; 87660; 99212

== ENCOUNTER 2023-01-05 15:14 | Outpatient (REF) | payer OTHER, SELFPAY | END 2023-01-05 15:15 | disposition home or self-care (01) | LOC: HO.LNP 15:14 | PROVIDERS: Visit Provider Advanced Practice Midwife | DX: Z13.89 Encounter for screening for other disorder (principal) ==

== ENCOUNTER 2023-01-12 10:45 | Outpatient (REF) | payer OTHER, SELFPAY ==
--- NOTE | ~2023-01-12 | US_ITS ---
EXAMINATION: US PELVIS CLINICAL INFORMATION: Excessive and frequent menses with irregular cycle; the last menstrual period was on 12/25/2022. COMPARISON: Pelvic ultrasound dated 02/18/2022. TECHNIQUE: Ultrasound of the pelvis is performed using both transabdominal and transvaginal transducers along with Doppler. Transvaginal imaging is performed due to inadequate visualization transabdominally. FINDINGS: Uterus: The uterus is anteverted and anteflexed. The uterus measures 10.0 x 4.5, x 6.5 cm. Again, the uterus shows an arcuate configuration. The double wall endometrial thickness is 1.5 cm. The uterus is smooth in contour and has normal myometrial echogenicity. No visible fibroid. Adnexa: Both ovaries are visualized. There is normal color flow to the adnexa. There is no ovarian torsion. There is no pelvic ascites or fluid collection. Right ovary measures 2.5 x 1.3 x 1.4 cm, volume 2.4 mL. Left ovary measures 3.0 x 2.8 x 2.1 cm, volume 9.2 mL. The left ovary contains a 1.6 x 1.5 x 1.3 cm corpus luteum cyst. US/US pelvic and transvaginal IMPRESSION: 1. The uterus shows a mild arcuate configuration. 2. A 1.6 cm left ovarian corpus luteum cyst is incidentally noted. No imaging follow-up is recommended.
[2023-01-12 12:10] LABS: Hematocrit 37.1 % (37.0-47.0); Hemoglobin 11.6 g/dl (12.0-16.0); Mean Corpuscular HGB Conc 31.3 g/dl (31.0-35.0); Mean Corpuscular Hemoglobin 26.5 pg (27.0-33.0); Mean Corpuscular Volume 84.9 fL (80.0-98.0); Mean Platelet Volume 11.5 fL (9.4-12.3); Platelet Count 316 X10*3/uL (160-400); Red Blood Count 4.37 X10*6/uL (4.20-5.50); Red Cell Distribution Width 14.1 % (11.0-16.0)
[2023-01-12 13:30] LABS: HCG Quantitative < 2 mIU/mL; Thyroid Stimulating Hormone 1.96 uIU/mL (0.32-4.0)
== END 2023-01-12 10:46 | disposition home or self-care (01) ==
LOC: HO.US 10:45
PROVIDERS: PCP Internal Medicine; Visit Provider Advanced Practice Midwife
DX: N92.0 Excessive and frequent menstruation with regular cycle (principal); R10.2 Pelvic and perineal pain; N83.209 Unspecified ovarian cyst, unspecified side
CPT/HCPCS: 36415; 76830; 76856; 84443; 84702; 85027

== ENCOUNTER 2023-02-02 10:55 | Outpatient (AMB) | payer OTHER, SELFPAY ==
[2023-02-02 10:57] VITALS: BP 110/68; BMI 29.6
--- NOTE | 2023-02-02 10:57 | MHC.OFFVIS ---
Intake Vital Signs 02/02/23 10:57 Height 5 ft 2 in Weight 162 lb BMI 29.6 BP 110/68 Intake Visit Reasons: US follow up/30 mins Intake Note: The patient agreed to use of a medical doctor md/medical director during this encounter. Scribed for NITZA Pickard by Verito Austin medical doctor md/medical director, on 02/02/2023 at 11:12 am EST. Bath House Attendant Required: Yes Bath House Attendant Language: Professional Builder Name: Claudia ZUNIGA Information Interpreted: non-clinical & clinical Allergies No Known Allergies [No Known Allergies*] Allergy (Verified 02/02/23 10:59) Is last menstrual period known: Yes Last menstrual period: 01/27/23 HPI HPI Comments History of Present Illness Details She is here to discuss US results regarding excessive and frequent menses with heavy bleeding/longer cycles. Reports she stopped taking her OCP due to constipation. Long hx. of constipation. She is interested in changing her form of BC. She denies any contraindications to control such as: migraines with aura, history of DVT or pulmonary emboli, high blood pressure, liver disease, thrombolic disorders, Lupus, +GERSON, or smoking. [facility] Medical History Constipated Cyst of left ovary Pelvic pain Menorrhagia History of anemia Vitamin D deficiency Muscle strain of right upper back Fatigue Dyspareunia, female Surgical History Hx of tubal ligation Family History Other No pertinent family history in first degree relatives Social History Housing: House Alcohol intake: unknown Patient Tobacco Use Status: Never used Tobacco e-Cigarette/Vaping Use: Never Used Current occupational status: employed Cognitive needs: No Hearing needs: No Vision needs: No Female Reproductive History Menstrual Age of Menarche: 7 Date of last menstrual period: 01/27/23 Physical Exam Vital Signs: Last Vital Signs BP 110/68 02/02/23 10:57 BMI result Body Mass Index 29.6 Const General: cooperative, healthy appearing, comfortable, no acute distress, well developed, alert and awake Results Reviewed Results Reviewed: EXAMINATION: US PELVIS CLINICAL INFORMATION: Excessive and frequent menses with irregular cycle; the last menstrual period was on 12/25/2022. COMPARISON: Pelvic ultrasound dated 02/18/2022. TECHNIQUE: Ultrasound of the pelvis is performed using both transabdominal and transvaginal transducers along with Doppler. Transvaginal imaging is performed due to inadequate visualization transabdominally. FINDINGS: Uterus: The uterus is anteverted and anteflexed. The uterus measures 10.0 x 4.5, x 6.5 cm. Again, the uterus shows an arcuate configuration. The double wall endometrial thickness is 1.5 cm. The uterus is smooth in contour and has normal myometrial echogenicity. No visible fibroid. Adnexa: Both ovaries are visualized. There is normal color flow to the adnexa. There is no ovarian torsion. There is no pelvic ascites or fluid collection. Right ovary measures 2.5 x 1.3 x 1.4 cm, volume 2.4 mL. Left ovary measures 3.0 x 2.8 x 2.1 cm, volume 9.2 mL. The left ovary contains a 1.6 x 1.5 x 1.3 cm corpus luteum cyst. US/US pelvic and transvaginal IMPRESSION: 1. The uterus shows a mild arcuate configuration. 2. A 1.6 cm left ovarian corpus luteum cyst is incidentally noted. No imaging follow-up is recommended. Assessment & Plan Assessment & Plan (1) Encounter to discuss test results: Code(s): Z71.2 - Person consulting for explanation of examination or test findings Plan: Discussed: US findings: 1. The uterus shows a mild arcuate configuration. 2. A 1.6 cm left ovarian corpus luteum cyst is incidentally noted. No imaging follow-up is recommended. All of her questions and concerns were addressed to the best of my ability and shared decision making. She is agreeable to plan of care. (2) Constipated: Code(s): K59.00 - Constipation, unspecified Plan: Maintaining a healthy lifestyle including a well balanced diet which includes high fiber, fruit vegetables and staying well hydrated. Recommend consulting with her PCP and possible GI specialist. (3) Menorrhagia: Code(s): N92.0 - Excessive and frequent menstruation with regular cycle (4) control counseling: Code(s): Z30.09 - Encounter for other general counseling and advice on contraception Plan: D/w pt the different options of control including Nuvaring, patches, DMPA, IUD (Mirena, Paraguard) and Nexplanon. She opts for patches. Reviewed use, side effects and warnings of patch. Informed pt the efficacy of the patch if her weight is over 30 BMI. Strongly recommend maintaining a healthy lifestyle including a well balanced diet and routine exercise to help loose weight. Explained demo mode of usage of Xulane with web support/visual demo. If further information is needed, recommend researching Xulane patch for instructions on where and how to place patches. Instructed to per manufacturers recommendations. Use one patch for a full week and then remove and apply new one. She is aware that she will use the patch for 3 weeks on and 1 week off and should get her menses on off week. Use condoms always to prevent STD's. Can start patches within the first 5 days of her menses. She was instructed to go to ER if she develops loss of vision, severe headache that does not resolve, chest pain, diff breathing, abdominal pain, or severe pain or tenderness in extremity. Call the office with any concerns. Return in 3 months for BC check up. (5) Cyst of left ovary: Code(s): N83.202 - Unspecified ovarian cyst, left side Medications: New norelgestromin-ethin.estradiol 150-35 mcg/24 hr (Xulane) Start the patch on 11/20/22, wear one patch a week, then one week is patch free (off for one week). 1 patch transdermal QWEEK 3 weeks 3 ea 3RF Discontinued desogestrel-ethinyl estradiol 0.15-0.03 mg (Apri) Discontinued Reason: No Longer Medically Relevant 1 tab PO DAILY 90 days 90 tabs 0RF Coding Level of Care Code Est Pt Level 3 (06228) Diagnoses Encounter to discuss test results Z71.2 Constipated K59.00 Menorrhagia N92.0 control counseling Z30.09 Cyst of left ovary N83.202
== END 2023-02-02 11:33 | disposition home or self-care (01) ==
LOC: HO.HWSW 10:55
PROVIDERS: PCP Internal Medicine; Visit Provider Advanced Practice Midwife
DX: Z71.2 Person consulting for explanation of examination or test findings (principal); K59.00 Constipation, unspecified; N92.0 Excessive and frequent menstruation with regular cycle; Z30.09 Encounter for other general counseling and advice on contraception; N83.202 Unspecified ovarian cyst, left side
CPT/HCPCS: 99213

== ENCOUNTER → 2023-02-02 10:55 | Outpatient (BNVA) | payer OTHER, SELFPAY | PROVIDERS: PCP Internal Medicine; Visit Provider Advanced Practice Midwife | DX: Z71.2 Person consulting for explanation of examination or test findings (principal); Z30.09 Encounter for other general counseling and advice on contraception; N83.202 Unspecified ovarian cyst, left side; N92.0 Excessive and frequent menstruation with regular cycle; K59.00 Constipation, unspecified | CPT/HCPCS: 99212 ==

== ENCOUNTER 2023-04-24 08:59 | Outpatient (AMB) | payer OTHER, SELFPAY ==
[2023-04-24 09:06] VITALS: BP 130/86; PULSE 85; O2SAT 96; BMI 30.3
--- NOTE | 2023-04-24 09:06 | MHC.PC.OV ---
Vital Signs 04/24/23 09:06 Height 5 ft 2 in Weight 165 lb 8 oz BMI 30.3 BP 130/86 Blood Pressure Location Lt brachial Position Sitting Pulse 85 Pulse Source Pulse Oximeter Pulse Oximetry (%) 96 Oxygen Delivery Method Room Air Intake Visit Reasons: Annual PE Is last menstrual period known: Yes (04/13) Allergies No Known Allergies [No Known Allergies*] Allergy (Verified 06/20/23 02:03) Medication List - Last Reconciled 04/24/23 by Oralia Youngblood MD norelgestromin-ethin.estradiol 150-35 mcg/24 hr (Xulane) 1 patch transdermal QWEEK 3 weeks Tobacco use date assessed: 04/24/23 Dental Screening Dental Screen Date: 04/24/23 Did you have a dental visit in the last 12 months?: No Did you have a dental problem in the last 6 months where you did not have access to dental care?: No Was dental information given to patient?: No HPI Annual PE HPI Details 32-year-old lady here today for her physical exam. She is up-to-date with her cervical cancer screening, done at [facility]. Does have an appointment to see them again for contraceptive counseling currently on the control patch. She has history of iron deficiency anemia, currently asymptomatic. Complains of feeling very tired all the time, does have history of vitamin-D deficiency, currently not on any supplements at present. She has also been complaining of intermittent right upper quadrant pain, aggravated by food intake which has been present now for the last several months. Review of last blood work showed presence of elevated bilirubin level. She is due for her flu shot, up-to-date with her tetanus diphtheria whooping cough vaccine, . but does not want to get a COVID booster [facility] Medical History Constipated Cyst of left ovary Pelvic pain Menorrhagia History of anemia Vitamin D deficiency Muscle strain of right upper back Fatigue Dyspareunia, female Surgical History Hx of tubal ligation Family History Other No pertinent family history in first degree relatives Social History Housing: House Alcohol intake: unknown Patient Tobacco Use Status: Never used Tobacco e-Cigarette/Vaping Use: Never Used Current occupational status: employed Cognitive needs: No Hearing needs: No Vision needs: No Female Reproductive History Menstrual Age of Menarche: 7 Questionnaire PHQ-9 Over the last 2 weeks, how often have you been bothered by any of the following problems? 1. Little interest or pleasure in doing things: not at all 2. Feeling down, depressed, or hopeless: not at all 3. Trouble falling or staying asleep, or sleeping too much: not at all 4. Feeling tired or having little energy: more than half the days 5. Poor appetite or overeating: not at all 6. Feeling bad about yourself - or that you are a failure or have let yourself or your family down: not at all 7. Trouble concentrating on things, such as reading the newspaper or watching television: not at all 8. Moving or speaking so slowly that other people could have noticed. Or the opposite - being so fidgety or restless that you have been moving around a lot more than usual: not at all 9. Thoughts that you would be better off or of hurting yourself in some way: not at all Total score: 2 Depression Screening Interpretation: Negative Depression Screening Done: Yes [id number] - PHQ-9 Billing: Yes Source: Developed by Drs. José Miguel Barrow, Alyssa Yo, Sarath Bhardwaj and colleagues, with an educational jessica from [place]. Thrive Questionnaire Date Thrive assessed: 04/24/23 I am a: Patient What is your living situation today?: I have a steady place to live Within the past 12 months, did the food you bought not last and you didn't have the money to get more?: Never true Within the past 12 months, did you worry whether your food would run out before you got money to buy more?: Never true Do you have trouble paying for medicines?: No Do you have trouble getting transportation to medical appointments?: No Do you have trouble paying your heating and electricity bill?: No Do you have trouble taking care of your child, family member or friend?: No Do you have trouble with day-to-day activities such as bathing, preparing meals, shopping, managing finances, etc.?: No Are you currently unemployed and looking for a job?: No Are you interested in more education?: No Please select the resources that you would like help with: None AUDIT C Alcohol Use Questionnaire (AUDIT-C) 1. How often do you have a drink containing alcohol?: Never 2. How many drinks containing alcohol do you have on a typical day when you are drinking?: 1 or 2 3. How often do you have six or more drinks on one occasion?: Never Total Score: 0 BRADEN-7 AMB Questionnaire BRADEN-7 Date BRADEN - 7 assessed: 04/24/23 Feeling nervous, anxious, or on edge: 0 = Not at all Not being able to stop or control worryin = Not at all Worrying too much about different things: 0 = Not at all Trouble relaxin = Not at all Being so restless that it is hard to sit still: 0 = Not at all Becoming easily annoyed or irritable: 0 = Not at all Feeling afraid as if something awful might happen: 0 = Not at all Total BRADEN-7 score (0-4 normal; 5-9 mild; 10-14 moderate; 15-21 severe): 0 Source: Developed by Drs. José Miguel Barrow, Alyssa Yo, Sarath Bhardwaj and colleagues, with an educational jessica from [place]. BRADEN-7 Assessment Billing BRADEN-7 Assessment Tool: BRADEN-7 Assessment 85186 Review of Systems Const Denies fever(s), Denies headache(s) and Denies weakness Eyes Reports no additional complaints ENT Denies dysphagia, Denies dizziness, Denies headache(s), Denies epistaxis, Denies nasal congestion, Denies post nasal drip and Denies sore throat Card Denies chest pain, Denies rapid heart rate, Denies irregular heart rhythm and Denies lightheadedness Resp Denies cough and Denies hemoptysis GI Reports as per HPI, Denies melena, Denies hematochezia, Reports constipation, Denies dysphagia and Reports dyspepsia Reports as per HPI, Denies hematuria, Denies urinary frequency and Denies dysuria Musc Reports no additional complaints Skin/Breast Denies breast pain, Denies breast mass and Denies rash Neuro Denies dizziness, Denies headache(s), Denies focal weakness, Denies radicular pain and Denies weakness Psych Reports no additional complaints Endo Reports no additional complaints Hubert/Lymph Denies easy bleeding and Denies easy bruising Aller/Immun Reports no additional complaints Physical exam (Primary Care) Vital Signs: Last Vital Signs Pulse 85 04/24/23 09:06 BP 130/86 04/24/23 09:06 Pulse Ox 96 04/24/23 09:06 Oxygen Delivery Method Room Air 04/24/23 09:06 BMI result Body Mass Index 30.3 Tobacco/Smoking Status: Tobacco use Status Tobacco use date assessed 04/24/23 04/24/23 09:11 Patient Tobacco Use Status Never used Tobacco 04/24/23 09:09 e-Cigarette/Vaping Use Never Used 04/24/23 09:09 PHQ-9: PHQ-9 Score PHQ-9: Total score 2 04/24/23 10:07 Depression Screening Interpretation: Negative Thrive Assessment: Date of Thrive Assessment Date Thrive assessed 04/24/23 04/24/23 09:16 Const Other: Alert oriented x3, no acute distress noted, ambulatory normal gait, obese Eyes General: appearance normal, both eyes and all related structures Conjunctivae: conjunctivae normal Sclerae: sclerae normal Pupils: Equal, round and reactive pupils present EOM: EOMs intact bilaterally Neck Other: Thyroid gland nonpalpable Neck: Yes full ROM, Yes no lymphadenopathy and Yes supple Chest Breast/axilla palpation: normal palpation of the breasts Resp Auscultation: clear to auscultation bilaterally Cardio Other: S1-S2 present regular rate and rhythm GI Other: Normal bowel sounds, soft, nontender with no mass palpated Other: Not done, currently sees [facility] for her routine Pap and pelvic exam and for control counseling Back/Spine/Pelvis Back: No back tenderness Skin General skin exam: no rashes or lesions noted Neuro Cranial nerves: Yes Equal, round and reactive pupils present Extrem General: Yes full ROM, Yes no joint enlargement, Yes no pedal edema and Yes no calf tenderness Psych Mental Status: mental status grossly normal Speech and movement: Normal speech and movement present Affect: normal affect Thought process: Normal thought process present Office Procedures Flu Questionnaire Does the patient have a severe egg allergy?: No Does the patient have severe life threatening allergies?: No Does the patient have a fever or illness today?: No Has the patient ever had Guillain-[place] Syndrome?: No Has the patient ever had any past reaction to a flu shot?: No Immunizations flu vacc [id number] 6mos up(PF) 60 mcg(15 mcgx4)/0.5 mL IM syringe Performing Provider: Oralia Youngblood MD Performing Location: [facility] Administered by: Josie Ma CMA on 04/24/23 10:08 Dose Route Admin Location Dispensed Lot Number Expiration Date NDC Rodent Exterminator 0.5 mL IM Left Deltoid 0.5 mL [id number] 11/19/23 [id number] [employer] VIS Given Date VIS Provided VIS Publication Date 04/24/23 Single Vaccine 20 Eligibility Eligibility Date Funding Source Not [facility] Eligible 04/24/23 Private Assessment and Plan Assessment & Plan (1) Annual visit for general adult medical examination with abnormal findings: Code(s): Z00.01 - Encounter for general adult medical examination with abnormal findings Plan: Will check appropriate labs. Recommended dental visit every 6 months and regular eye exams, at least every 2 years. Take adequate calcium in diet and vitamin-D 3 at 2000 IU per cap once a day, in addition to weight-bearing exercises to help maintain good muscle tone and weight control. Instructed to do self-breast exam, and recommended to get yearly mammogram, starting at age 40. Flu vaccine given today, declined getting COVID booster, up-to-date with Tdap. Currently on control patch, sees [facility] for her routine Pap pelvic exam and control counseling (2) Constipated: Code(s): K59.00 - Constipation, unspecified Qualifiers: Constipation type: unspecified constipation type Qualified Code(s): K59.00 - Constipation, unspecified Plan: Prescription sent for docusate sodium and senna to take as direct. Increase fluids, and dietary fiber intake (3) History of anemia: Code(s): Z86.2 - Personal history of diseases of the blood and blood-forming organs and certain disorders involving the immune mechanism Plan: Check CBC and iron profile (4) Vitamin D deficiency: Code(s): E55.9 - Vitamin D deficiency, unspecified Plan: Will check vitamin-D level (5) Epigastric pain: Code(s): R10.13 - Epigastric pain Plan: Ultrasound of abdomen ordered, check CBC (6) Elevated bilirubin: Code(s): R17 - Unspecified jaundice Plan: Ultrasound of abdomen and compressive metabolic panel ordered Orders: Orders Vitamin D 25-OH Total 04/24/23 K59.00 - Constipation, unspecified, Z86.2 - Personal history of diseases of the blood and blood-forming organs and certain disorders involving the immune mechanism, E55.9 - Vitamin D deficiency, unspecified, Z00.01 - Encounter for general adult medical examination with abnormal findings, R10.13 - Epigastric pain Lipid Panel 04/24/23 K59.00 - Constipation, unspecified, Z86.2 - Personal history of diseases of the blood and blood-forming organs and certain disorders involving the immune mechanism, E55.9 - Vitamin D deficiency, unspecified, Z00.01 - Encounter for general adult medical examination with abnormal findings, R10.13 - Epigastric pain Complete Blood Count Auto Diff 04/24/23 K59.00 - Constipation, unspecified, Z86.2 - Personal history of diseases of the blood and blood-forming organs and certain disorders involving the immune mechanism, E55.9 - Vitamin D deficiency, unspecified, Z00.01 - Encounter for general adult medical examination with abnormal findings, R10.13 - Epigastric pain Comprehensive [place]. Panel Fast 04/24/23 K59.00 - Constipation, unspecified, Z86.2 - Personal history of diseases of the blood and blood-forming organs and certain disorders involving the immune mechanism, E55.9 - Vitamin D deficiency, unspecified, Z00.01 - Encounter for general adult medical examination with abnormal findings, R10.13 - Epigastric pain US abdomen complete 04/24/23 R10.13 - Epigastric pain, R17 - Unspecified jaundice Influenza [id number] Immunization 04/24/23 Z23 - Encounter for immunization IRON PROFILE 04/24/23 K59.00 - Constipation, unspecified, Z86.2 - Personal history of diseases of the blood and blood-forming organs and certain disorders involving the immune mechanism, E55.9 - Vitamin D deficiency, unspecified, Z00.01 - Encounter for general adult medical examination with abnormal findings, R10.13 - Epigastric pain Medications: New docusate sodium 100 mg PO DAILY 30 caps 3RF sennosides (Senna Laxative) 8.6 mg PO BEDTIME PRN 20 tabs 0RF constipation Coding Level of Care Code Est Pt Prev Care 18-39y([id number]) Diagnoses Annual visit for general adult medical examination with abnormal findings Z00.01 Constipation, unspecified constipation type K59.00 Constipation type: unspecified constipation type History of anemia Z86.2 Vitamin D deficiency E55.9 Epigastric pain R10.13 Elevated bilirubin R17 Additional Codes BRADEN-7 Assessment Billing - BRADEN-7 Assessment Tool: BRADEN-7 Assessment 04595 ([id number])
== END 2023-04-24 10:09 | disposition home or self-care (01) ==
PROVIDERS: PCP Internal Medicine; Visit Provider Internal Medicine
DX: Z00.01 Encounter for general adult medical examination with abnormal findings (principal); K59.00 Constipation, unspecified; Z86.2 Personal history of diseases of the blood and blood-forming organs and certain disorders involving the immune mechanism; E55.9 Vitamin D deficiency, unspecified; R10.13 Epigastric pain; R17 Unspecified jaundice
CPT/HCPCS: 90471; 90686; 99214; 99395

== ENCOUNTER 2023-04-24 10:10 | Outpatient (REF) | payer OTHER, SELFPAY ==
[2023-04-24 13:37] LABS: MANUAL DIFF FLAG NO
[2023-04-24 14:24] LABS: Alanine Aminotransferase 57 U/L (0-31); Albumin Level 4.3 g/dL (3.5-5.0); Alkaline Phosphatase 58 U/L (39-117); Anion Gap 10 (12-20); Aspartate Amino Transferase 37 U/L (5-31); Bilirubin Total 0.7 mg/dL (0.0-1.0); Blood Urea Nitrogen 16 mg/dL (9-16); Calcium 9.3 mg/dL (8.4-10.2); Carbon Dioxide 26 mmol/L (22-29); Chloride 106 mmol/L (96-108); Cholesterol 206 mg/dL (<200); Estimated Glomerular Filt Rate > 60; Glucose Fasting 90 mg/dL (60-99); HDL Cholesterol 49 mg/dL (>40); Iron 99 mcg/dL (30-160); LDL Cholesterol Calculated 128 mg/dL (<100); Percent Iron Saturation 29 % (15-50); Potassium 4.1 mmol/L (3.3-5.1); Sodium 138 mmol/L (135-145); Total Iron Binding Capacity 347 mcg/dL (228-428); Total Protein 7.9 g/dL (6.5-8.0); Triglycerides 148 mg/dL (<150); Unsaturated Iron Binding 248 ug/dL
[2023-04-24 14:26] LABS: Vitamin D 25-OH Total 29.4 ng/mL (>30)
[2023-04-24 15:12] LABS: Basophils Absolute Auto 0.1 X10*3/uL (0.0-0.2); Basophils Percent Auto 1.5 % (0-2); Eosinophils Absolute Auto 0.2 X10*3/uL (0.0-0.4); Eosinophils Percent Auto 3.4 % (0-4); Hematocrit 39.6 % (37.0-47.0); Hemoglobin 12.7 g/dl (12.0-16.0); Imm Gran Abs Auto 0.01 X10*3/uL (0.00-0.03); Imm Gran Pct Auto 0.2 % (0.0-0.4); Lymphocytes Absolute Auto 2.1 X10*3/uL (1.2-4.9); Lymphocytes Percent Auto 34.8 % (20-40); Mean Corpuscular HGB Conc 32.1 g/dl (31.0-35.0); Mean Corpuscular Hemoglobin 27.7 pg (27.0-33.0); Mean Corpuscular Volume 86.3 fL (80.0-98.0); Mean Platelet Volume 11.5 fL (9.4-12.3); Monocytes Absolute Auto 0.6 X10*3/uL (0.1-1.2); Monocytes Percent Auto 9.7 % (2-11); Neutrophils Percent Auto 50.4 % (45-73); Platelet Count 336 X10*3/uL (160-400); Red Blood Count 4.59 X10*6/uL (4.20-5.50); Red Cell Distribution Width 15.9 % (11.0-16.0)
== END 2023-04-24 10:11 | disposition home or self-care (01) ==
LOC: HO.HMGCLDS 10:10
PROVIDERS: PCP Internal Medicine; Visit Provider Internal Medicine
DX: Z00.01 Encounter for general adult medical examination with abnormal findings (principal); K59.00 Constipation, unspecified; E55.9 Vitamin D deficiency, unspecified; R10.13 Epigastric pain; Z86.2 Personal history of diseases of the blood and blood-forming organs and certain disorders involving the immune mechanism
CPT/HCPCS: 36415; 80053; 80061; 82306; 83540; 85025

== ENCOUNTER 2023-05-04 09:30 | Outpatient (AMB) | payer OTHER, SELFPAY ==
[2023-05-04 09:55] VITALS: BP 120/62; BMI 30.4
--- NOTE | 2023-05-04 09:55 | MHC.OFFVIS ---
Intake Vital Signs 05/04/23 09:55 Height 5 ft 2 in Weight 166 lb BMI 30.4 BP 120/62 Intake Visit Reasons: BC-Patch Ck Intake Note: Hasn't started the patch since she didn't get her period last month Senior Asic Engineer Required: Yes Senior Asic Engineer Language: Spinning Lathe Operator Hydraulic Name: Claudia Lawrence Wool Dyer: Wool Dyer Present Allergies No Known Allergies [No Known Allergies*] Allergy (Verified 05/04/23 09:59) Is last menstrual period known: Yes Last menstrual period: 05/02/23 Post menopausal: No HPI HPI Comments History of Present Illness Details Is here for follow-up on her control patch. She admits that she is not wearing 1 and never started because her periods are still irregular. Cycles were heavy and prolonged in the summer and now over the throughout the fall they have been light spotty in sporadic. She has a history of a tubal ligation. [facility] Medical History Constipated Cyst of left ovary Pelvic pain Menorrhagia History of anemia Vitamin D deficiency Muscle strain of right upper back Fatigue Dyspareunia, female Surgical History Hx of tubal ligation Family History Other No pertinent family history in first degree relatives Social History Housing: House Alcohol intake: unknown Patient Tobacco Use Status: Never used Tobacco e-Cigarette/Vaping Use: Never Used Current occupational status: employed Cognitive needs: No Hearing needs: No Vision needs: No Female Reproductive History Menstrual Age of Menarche: 7 Date of last menstrual period: 05/02/23 control method: permanent sterilization Total pregnancies: 5 Full term: 3 Number of Living Children: 3 Ab spontaneous: 2 Date of last pap smear: 01/13/22 (negative) Review of Systems Const All systems reviewed & are unremarkable except as noted in HPI and below Endo Reports no additional complaints Physical Exam Vital Signs: Last Vital Signs BP 120/62 05/04/23 09:55 BMI result Body Mass Index 30.4 Const General: cooperative, healthy appearing and no acute distress Psych Appearance: well kempt Attitude: cooperative Thought process: Normal thought process present Assessment & Plan Assessment & Plan (1) Abnormal uterine bleeding (AUB): Code(s): N93.9 - Abnormal uterine and vaginal bleeding, unspecified Plan Discussed: Workup to include EMB. Pre procedure medication, use of OTC medications such as Tylenol or ibuprofen with food 1 hour before the procedure reviewed today. Prior labs and ultrasound reviewed with her today. No evidence of anemia. Thyroid level was up to date and in normal range. All of her questions and concerns were addressed to the best of my ability and shared decision making. She is agreeable to the plan of care. Coding Level of Care Code Est Pt Level 3 (12819) Diagnoses Abnormal uterine bleeding (AUB) N93.9
== END 2023-05-04 10:18 | disposition home or self-care (01) ==
LOC: HO.HWS 09:30
PROVIDERS: PCP Internal Medicine; Visit Provider Advanced Practice Midwife
DX: N93.9 Abnormal uterine and vaginal bleeding, unspecified (principal)
CPT/HCPCS: 99213

== ENCOUNTER → 2023-05-04 09:30 | Outpatient (BNVA) | payer OTHER, SELFPAY | PROVIDERS: PCP Internal Medicine; Visit Provider Advanced Practice Midwife | DX: N93.9 Abnormal uterine and vaginal bleeding, unspecified (principal) | CPT/HCPCS: 99212 ==

== ENCOUNTER 2023-05-23 09:19 | Outpatient (REF) | payer OTHER, SELFPAY ==
--- NOTE | ~2023-05-23 | US_ITS ---
EXAMINATION: US ABDOMEN COMPLETE CLINICAL INFORMATION: Epigastric pain. COMPARISON: None available. TECHNIQUE: Real-time imaging of the abdominal viscera. FINDINGS: PANCREAS: Normal. ABDOMINAL AORTA: The proximal, mid, and distal segments are normal in caliber. INFERIOR VENA CAVA: Visualized portions are normal. LIVER: Increased hepatic parenchymal heterogeneity and echogenicity could be associated with hepatocellular disease/hepatic steatosis and substantially limits visualization. Correlation with liver function tests and clinical exam recommended to determine further management. Focal areas within the liver adjacent to the gallbladder may represent areas of focal sparing within a fatty liver. GALLBLADDER: No gallstones. No gallbladder wall thickening. COMMON BILE DUCT: Normal in caliber measuring 0.4 cm in diameter. RIGHT KIDNEY: Multiple renal echogenic foci, possibly artifact versus renal calculi. No hydronephrosis. Limited visualization. The kidney measures 11.1 cm in maximum dimension. LEFT KIDNEY: No hydronephrosis. No renal calculi. Limited visualization. The kidney measures 10.3 cm in maximum dimension. SPLEEN: Normal. The spleen measures 9.0 cm in maximum dimension. FREE FLUID: None. US/US abdomen complete IMPRESSION: 1. Increased hepatic parenchymal heterogeneity and echogenicity could be associated with hepatocellular disease/hepatic steatosis and substantially limits visualization. Focal areas within the liver adjacent to the gallbladder may represent areas of focal sparing within a fatty liver. Correlation with liver function tests and clinical exam recommended to determine further management. 2. Multiple right renal echogenic foci, possibly artifact versus renal calculi. No hydronephrosis.
== END 2023-05-23 09:20 | disposition home or self-care (01) ==
LOC: HO.US 09:19
PROVIDERS: PCP Internal Medicine; Visit Provider Internal Medicine
DX: R10.13 Epigastric pain (principal); R17 Unspecified jaundice
CPT/HCPCS: 76700

== ENCOUNTER 2023-07-27 09:37 | Outpatient (REF) | payer OTHER, SELFPAY | END 2023-07-27 09:38 | disposition home or self-care (01) | LOC: HO.LNP 09:37 | PROVIDERS: PCP Internal Medicine; Visit Provider Advanced Practice Midwife | DX: Z01.419 Encounter for gynecological examination (general) (routine) without abnormal findings (principal) | CPT/HCPCS: 99395 ==

== ENCOUNTER 2023-07-27 09:37 | Outpatient (AMB) | payer OTHER, SELFPAY ==
--- NOTE | 2023-07-27 09:41 | MHC.OFFVIS ---
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 Doing well with no concerns. She tries to eat healthy and stays active with exercise. Regular monthly menses, heavy, previously skipped for two and never started Xulane. She is interested in starting at this time. She denies any contraindications to control such as: migraines with aura, history of DVT or pulmonary emboli, high blood pressure, liver disease, thrombolic disorders, Lupus, +GERSON, breast cancer, or smoking. Currently is sexually active. Hx. BLTL. She denies vaginal itching and irritation. STI screening offered; she accepts. Denies family history of breast, ovarian or colon cancer. Last pap smear 2021, negative. [facility] Medical History (Updated 07/27/23 @ 10:03 by Erika Woodard CNM) Menorrhagia Constipated Pelvic pain History of anemia Vitamin D deficiency Muscle strain of right upper back Fatigue Surgical History Hx of tubal ligation Family History Other No pertinent family history in first degree relatives Social History Housing: House Alcohol intake: unknown Patient Tobacco Use Status: Never used Tobacco e-Cigarette/Vaping Use: Never Used Current occupational status: employed Cognitive needs: No Hearing needs: No Vision needs: No Female Reproductive History Menstrual Age of Menarche: 7 Date of last menstrual period: 07/04/23 control method: permanent sterilization Permanent Sterilization: BTL Total pregnancies: 3 Full term: 3 Number of Living Children: 3 Date of last pap smear: 01/12/22 (neg pap and hpv) Review of Systems Const All systems reviewed & are unremarkable except as noted in HPI and below Reports as per HPI Eyes Reports no additional complaints ENT Reports no additional complaints Card Reports no additional complaints Resp Reports no additional complaints GI Reports as per HPI and Reports no additional complaints Reports as per HPI Musc Reports no additional complaints Skin/Breast Reports as per HPI Neuro Reports no additional complaints Psych Reports no additional complaints Endo Reports no additional complaints Hubert/Lymph Reports no additional complaints Aller/Immun Reports no additional complaints Physical Exam Vital Signs: Last Vital Signs BP 120/68 07/27/23 09:44 BMI result Body Mass Index 31.5 Const General: cooperative, healthy appearing, no acute distress, well developed and alert Orientation/consciousness: patient oriented x3 HEENT Head: Yes normal to inspection Eyes General: appearance normal, both eyes and all related structures Neck Neck: Yes normal visual inspection Thyroid: Thyroid normal Chest Chest palpation & inspection: normal inspection of the chest and other (no puckering, dimpling, peau de orange, retraction, discharge, masses) Breast/axilla inspection: normal inspection of the breasts Breast/axilla palpation: normal palpation of the breasts Resp Effort & Inspection: normal respiratory effort GI Inspection: Yes normal to inspection Palpation (GI): Soft to palpation Rectal Exam - Female: deferred General: Yes bladder normal to palpation External Female Exam: normal external appearance and normal appearance of the urethra Speculum Exam - Vagina: normal appearance of the vagina, normal palpation and normal vaginal discharge Speculum Exam - Cervix: normal appearance of the cervix and normal palpation Bimanual exam- vagina & uterus: normal bimanual exam, normal palpation, uterine size normal, bladder normal to palpation, normal palpation and non-tender Bimanual Exam- Adnexa, other: no masses Skin General skin exam: no rashes or lesions noted Rashes: no rashes Neuro General: patient oriented x3 Cognition (Neuro): normal cognition Extrem General: Yes normal to inspection Psych Attitude: cooperative Thought process: Normal thought process present Assessment & Plan Assessment & Plan (1) Encounter for well woman exam with routine gynecological exam: Code(s): Z01.419 - Encounter for gynecological examination (general) (routine) without abnormal findings Plan Discussed: Current recommendations for pap smears per ASCCP guidelines. Breast awareness and periodic breast exams. Maintain a healthy lifestyle including a well balanced diet and routine exercise. control hormone use warnings: go to ER if and loss of vision, blindness, severe headache, chest pain or difficulty breathing, severe abdominal pain, or any pain or swelling in an extremity. control follow up in 3 months after initiation of the patch. Patient verbalizes understanding and agrees to the plan of care. She was given opportunity to ask questions and all questions were answered to the best of my ability. RTO in one year for annual anatomic pathology assistant examination. This note is constructed using voice recognition software. While every effort has been made to ensure accuracy, housing and residence life director errors may have been included. Orders: Orders Hepatitis C Antibody Reflex Today Z20.2 - Contact with and (suspected) exposure to infections with a predominantly sexual mode of transmission Bacterial Vaginosis Panel Today Z20.2 - Contact with and (suspected) exposure to infections with a predominantly sexual mode of transmission HIV Ab/Ag Today Z20.2 - Contact with and (suspected) exposure to infections with a predominantly sexual mode of transmission Hepatitis B Core Antibody Today Z20.2 - Contact with and (suspected) exposure to infections with a predominantly sexual mode of transmission Syphilis Screen Today Z20.2 - Contact with and (suspected) exposure to infections with a predominantly sexual mode of transmission CT NG by PCR Today Z20.2 - Contact with and (suspected) exposure to infections with a predominantly sexual mode of transmission Medications: New norelgestromin-ethin.estradiol 150-35 mcg/24 hr (Xulane) Start the patch in the first five days of the menstrual cycle, where one patch a week, then one week is patch free (off for one week). 1 patch transdermal Q7D 3 weeks 3 ea 3RF Discontinued norelgestromin-ethin.estradiol 150-35 mcg/24 hr (Xulane) Start the patch on 11/20/22, wear one patch a week, then one week is patch free (off for one week). Discontinued Reason: Patient Completed Course 1 patch transdermal QWEEK 3 weeks 3 ea 3RF Coding Level of Care Code Est Pt Prev Care 18-39y(10809) Diagnoses Encounter for well woman exam with routine gynecological exam Z01.419
[2023-07-27 09:44] VITALS: BP 120/68; BMI 31.5
== END 2023-07-27 10:17 | disposition home or self-care (01) ==
LOC: HO.HWS 09:37
PROVIDERS: PCP Internal Medicine; Visit Provider Advanced Practice Midwife
DX: Z01.419 Encounter for gynecological examination (general) (routine) without abnormal findings (principal)
CPT/HCPCS: 99395

== ENCOUNTER 2023-07-27 10:27 | Outpatient (REF) | payer OTHER, SELFPAY ==
[2023-07-27 16:28] LABS: CT PCR NOT DETECTED (Not Detect.); NG PCR NOT DETECTED (Not Detect.)
[2023-07-28 08:17] LABS: HIV AB/AG Nonreactive (Nonreactive); HIV Num 1 0.07 S/CO (0.00-0.99); Hepatitis B Core Antibody Nonreactive (Nonreactive); ~HepC Num1 0.11 S/CO (0.00-0.79); ~Hepatitis C Antibody Nonreactive (Nonreactive)
[2023-07-28 08:20] LABS: Syphilis Screen Nonreactive (Nonreactive)
[2023-07-28 09:51] LABS: BV Int Neg Control Negative (Negative); BV Int Pos Control Positive (Positive)
== END 2023-07-27 10:28 | disposition home or self-care (01) ==
LOC: HO.LAB 10:27
PROVIDERS: PCP Internal Medicine; Visit Provider Advanced Practice Midwife
DX: Z11.4 Encounter for screening for human immunodeficiency virus [HIV] (principal); Z20.2 Contact with and (suspected) exposure to infections with a predominantly sexual mode of transmission
CPT/HCPCS: 0353U; 86704; 86780; 86803; 87389; 87480; 87510; 87660

== ENCOUNTER 2023-08-22 11:26 | Outpatient (AMB) | payer OTHER, SELFPAY ==
[2023-08-22 11:49] VITALS: BP 110/80; PULSE 91; TEMP 36.5; O2SAT 97; BMI 31.3
--- NOTE | 2023-08-22 11:49 | MHC.OFFWIV ---
Intake Vital Signs 08/22/23 11:49 Height 5 ft 2 in Weight 171 lb BMI 31.3 BP 110/80 Blood Pressure Location Lt brachial Position Sitting Pulse 91 Pulse Source Pulse Oximeter Temp 97.7 F Temp Source Temporal Artery Scan Pulse Oximetry (%) 97 Oxygen Delivery Method Room Air Intake Visit Reasons: EP Allergic reaction ~ Eye, arm, mouth Intake Note: pt is here today for allergic reaction started 1 week ago Patient Tobacco Use Status: Never used Tobacco Allergies No Known Allergies [No Known Allergies*] Allergy (Verified 11/02/23 09:37) Do you need a note to return to daycare/school/sports/work: No HPI HPI Comments History of Present Illness Details Patient comes in today with a your erythematous lesion around the upper lip. States she does not have a history of HSV 1. She has felt fatigue and PFSH Medical History Menorrhagia Constipated Pelvic pain History of anemia Vitamin D deficiency Muscle strain of right upper back Fatigue Surgical History Hx of tubal ligation Family History Other No pertinent family history in first degree relatives Social History Housing: House Alcohol intake: unknown Patient Tobacco Use Status: Never used Tobacco e-Cigarette/Vaping Use: Never Used Current occupational status: employed Cognitive needs: No Hearing needs: No Vision needs: No Female Reproductive History Menstrual Age of Menarche: 7 Review of Systems Const All systems reviewed & are unremarkable except as noted in HPI and below Physical Exam Vital Signs: Last Vital Signs Temp 97.7 F 08/22/23 11:49 Pulse 91 08/22/23 11:49 BP 110/80 08/22/23 11:49 Pulse Ox 97 08/22/23 11:49 Oxygen Delivery Method Room Air 08/22/23 11:49 BMI result Body Mass Index 31.3 HEENT Head: Yes normal to inspection and Yes normocephalic Ears: hearing grossly normal bilaterally General nose exam: Normal external nose present Mouth: lip abnormal (The lesion present on the upper lip) Resp Effort & Inspection: normal respiratory effort Auscultation: clear to auscultation bilaterally Cardio Rate: regular rate Rhythm: regular rhythm Heart sounds: S1 normal heart sound present and S2 normal heart sound present Assessment & Plan Assessment & Plan (1) HSV-1 (herpes simplex virus 1) infection: Code(s): B00.9 - Herpesviral infection, unspecified Plan: The patient is put on acyclovir. Will follow up with PCP Plan See plan Medications: New valacyclovir (Valtrex) 1,000 mg PO DAILY 5 tabs 0RF 5 days Coding Level of Care Code Est Pt Level 3 (06048) Diagnoses HSV-1 (herpes simplex virus 1) infection B00.9
== END 2023-08-22 12:38 | disposition home or self-care (01) ==
PROVIDERS: PCP Internal Medicine; Visit Provider Physician Assistant Medical
DX: B00.9 Herpesviral infection, unspecified (principal)
CPT/HCPCS: 99213

== ENCOUNTER 2023-11-02 09:22 | Outpatient (REF) | payer OTHER, SELFPAY ==
[2023-11-03 03:39] LABS: CT PCR NOT DETECTED (Not Detect.); NG PCR NOT DETECTED (Not Detect.)
[2023-11-03 10:31] LABS: Bacterial Vaginosis PCR NEGATIVE (Negative); Candida Group PCR NOT DETECTED (Not Detect); Candida glab krusei PCR NOT DETECTED (Not Detect); Trichomonas vaginalis PCR NOT DETECTED (Not Detect)
[2023-11-08 20:44] LABS: HPV mRNA E6/E7 rflx Not Detected (Not Detected)
== END 2023-11-02 09:23 | disposition home or self-care (01) ==
LOC: HO.LNP 09:22
PROVIDERS: PCP Internal Medicine; Visit Provider Advanced Practice Midwife
DX: N93.0 Postcoital and contact bleeding (principal); N93.9 Abnormal uterine and vaginal bleeding, unspecified
CPT/HCPCS: 0352U; 0353U; 87624; 88142; 99212

== ENCOUNTER 2023-11-02 09:22 | Outpatient (AMB) | payer OTHER, SELFPAY ==
--- NOTE | 2023-11-02 09:25 | A.OFFVIS_ITS ---
Vital Signs 11/02/23 09:36 Height 5 ft 2 in Weight 168 lb BMI 30.7 BP 102/60 Intake Visit Reasons: 3 month follow up control Intake Note: Patient never picked up patches she got scared when she was told about blood clots. 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 She has been monitoring her cycles reports that they have been more regular over the last 6 months lasting approximately 6 days heavier for the 1st few, and skipping 1 cycle. She denies any symptoms of hirsutism or acne. LMP October 11 cycle lasting 8 days, and an episode of postcoital bleeding 1 week after. [facility] Medical History Menorrhagia Constipated Pelvic pain History of anemia Vitamin D deficiency Muscle strain of right upper back Fatigue Surgical History Hx of tubal ligation Family History Other No pertinent family history in first degree relatives Social History Housing: House Alcohol intake: unknown Patient Tobacco Use Status: Never used Tobacco e-Cigarette/Vaping Use: Never Used Current occupational status: employed Cognitive needs: No Hearing needs: No Vision needs: No Female Reproductive History Menstrual Age of Menarche: 7 Date of last menstrual period: 10/12/23 control method: permanent sterilization Date of last pap smear: 01/13/22 (negative) Review of Systems Const All systems reviewed & are unremarkable except as noted in HPI and below Physical Exam Vital Signs: Last Vital Signs BP 102/60 11/02/23 09:36 BMI result Body Mass Index 30.7 Const General: cooperative, healthy appearing and no acute distress Orientation/consciousness: patient oriented x3 GI Inspection: Yes normal to inspection Palpation (GI): Soft to palpation and Other GI palpation findings present (Nontender) Rectal Exam - Female: visual inspection normal General: Yes bladder normal to palpation External Female Exam: normal appearance of the urethra Speculum Exam - Vagina: normal appearance of the vagina, normal palpation and normal vaginal discharge Speculum Exam - Cervix: normal appearance of the cervix, normal palpation and Other cervical findings present (Bled with Pap) Bimanual exam- vagina & uterus: normal bimanual exam, normal palpation, uterine size normal, bladder normal to palpation, normal palpation, uterine shape normal and non-tender Bimanual Exam- Adnexa, other: normal adnexae Neuro General: patient oriented x3 Assessment & Plan Assessment & Plan (1) Postcoital bleeding: Code(s): N93.0 - Postcoital and contact bleeding Plan Plan Pap today in cultures for gonorrhea chlamydia and BV panel. Monitor menstrual cycles, report any unscheduled bleeding, bleeding episodes <24 days apart or heavy/prolonged menstrual bleeding. Three-month follow up, call sooner if there is any other concerns or abnormal bleeding patterns. All of her questions and concerns were addressed to the best of my ability and shared decision making. She is agreeable to the plan of care. This note is constructed using voice recognition software. While every effort h as been made to ensure accuracy, managed services sales consultant errors may have been included. Orders: Orders Pap Smear Today N93.9 - Abnormal uterine and vaginal bleeding, unspecified CT NG by PCR Today N93.9 - Abnormal uterine and vaginal bleeding, unspecified Bacterial Vaginosis Panel Today N93.9 - Abnormal uterine and vaginal bleeding, unspecified Coding Level of Care Code Est Pt Level 3 (18500) Diagnoses Postcoital bleeding N93.0
[2023-11-02 09:36] VITALS: BP 102/60; BMI 30.7
== END 2023-11-02 10:06 | disposition home or self-care (01) ==
PROVIDERS: PCP Internal Medicine; Visit Provider Advanced Practice Midwife
DX: N93.0 Postcoital and contact bleeding (principal)
CPT/HCPCS: 99213

== ENCOUNTER 2024-02-16 10:39 | Outpatient (AMB) | payer OTHER, SELFPAY ==
--- NOTE | 2024-02-16 10:50 | MHC.OFFVIS ---
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: Distribution Dispatcher Name: Claudia Information Interpreted: non-clinical & clinical Turret Punch Operator: Turret Punch Operator Present Allergies No Known Allergies [No Known Allergies*] Allergy (Verified 02/16/24 10:53) Is last menstrual period known: Yes Last menstrual period: 02/02/24 HPI Comments Details: Patient is here today for a follow up on a menstrual cycles, previous visit she did not start the control patch and wanted to just observe her cycles, she reports overall the cycles are less volume of blood heavy for the 1st few days, total up to 8 days, with some GI upset she reports feels like acid. She utilizes a heating pad an add ibuprofen if needed. Cycles are regular monthly, history of tubal ligation. COUNT INCLUDES THE [facility] Medical History Menorrhagia Constipated Pelvic pain History of anemia Vitamin D deficiency Muscle strain of right upper back Fatigue Surgical History Hx of tubal ligation Family History Other No pertinent family history in first degree relatives Social History Housing: House Alcohol intake: unknown Patient Tobacco Use Status: Never used Tobacco e-Cigarette/Vaping Use: Never Used Current occupational status: employed Cognitive needs: No Hearing needs: No Vision needs: No Female Reproductive History Menstrual Age of Menarche: 7 Duration of menses: 8-10 days Date of last menstrual period: 02/02/24 Review of Systems Const All systems reviewed & are unremarkable except as noted in HPI and below Endo Reports no additional complaints Physical Exam Vital Signs: Last Vital Signs BP 102/64 02/16/24 10:54 Const General: cooperative, healthy appearing and no acute distress Psych Appearance: well kempt Attitude: cooperative Thought process: Normal thought process present Assessment & Plan Assessment & Plan (1) Heavy menses: Code(s): N92.0 - Excessive and frequent menstruation with regular cycle Qualifiers: Menorrhagia type: with regular cycle Qualified Code(s): N92.0 - Excessive and frequent menstruation with regular cycle Plan Discussed: Menstrual cycle history reviewed, Monitor menstrual cycles, report any unscheduled bleeding, bleeding episodes <24 days apart or heavy/prolonged menstrual bleeding. Call the office for a follow up for any concerns. Consider having food prior to ibuprofen use and to hydrate well. Alternatively can try Tylenol if having any GI symptoms with ibuprofen. And can also take Pepcid if having a GI upset after taking medication or premedicating if known to irritate her stomach. She prefers not to do any control at this time and just observe her bleeding since it has not increased. If any late menses to do a test at home and if positive to call the office for immediate evaluation, risks of ectopic reviewed. Her next appointment is 08/08/2024 for her annual exam. Advised to call if any concerns sooner. All of her questions and concerns were addressed to the best of my ability and shared decision making. She is agreeable to the plan of care. This note is constructed using voice recognition software. While every effort has been made to ensure accuracy, archivist political history errors may have been included. Coding Level of Care Code Est Pt Level 3 (33808) Diagnoses Menorrhagia with regular cycle N92.0 Menorrhagia type: with regular cycle
[2024-02-16 10:54] VITALS: BP 102/64
== END 2024-02-16 11:27 | disposition home or self-care (01) ==
LOC: HO.HWS 10:39
PROVIDERS: PCP Internal Medicine; Visit Provider Advanced Practice Midwife
DX: N92.0 Excessive and frequent menstruation with regular cycle (principal)
CPT/HCPCS: 99213

== ENCOUNTER → 2024-02-16 10:39 | Outpatient (BNVA) | payer OTHER, SELFPAY | PROVIDERS: PCP Internal Medicine; Visit Provider Advanced Practice Midwife | DX: N92.0 Excessive and frequent menstruation with regular cycle (principal) | CPT/HCPCS: 99212 ==

== ENCOUNTER 2024-05-06 10:59 | Outpatient (REF) | payer OTHER, SELFPAY ==
[2024-05-06 17:12] LABS: Alanine Aminotransferase 28 U/L (0-31); Anion Gap 7 (12-20); Aspartate Amino Transferase 26 U/L (5-31); Blood Urea Nitrogen 10 mg/dL (9-16); Calcium 9.1 mg/dL (8.4-10.2); Carbon Dioxide 27 mmol/L (22-29); Chloride 106 mmol/L (96-108); Cholesterol 180 mg/dL (<200); Estimated Glomerular Filt Rate > 60; Glucose Fasting 81 mg/dL (60-99); HDL Cholesterol 43 mg/dL (>40); LDL Cholesterol Calculated 118 mg/dL (<100); Potassium 4.2 mmol/L (3.3-5.1); Sodium 136 mmol/L (135-145); Triglycerides 95 mg/dL (<150)
[2024-05-06 17:28] LABS: Vitamin D 25-OH Total 20.1 ng/mL (>30)
== END 2024-05-06 11:00 | disposition home or self-care (01) ==
LOC: HO.HMGCLDS 10:59
PROVIDERS: PCP Internal Medicine; Visit Provider Internal Medicine
DX: Z00.01 Encounter for general adult medical examination with abnormal findings (principal); Z23 Encounter for immunization; E55.9 Vitamin D deficiency, unspecified; K59.00 Constipation, unspecified; Z71.89 Other specified counseling; Z13.1 Encounter for screening for diabetes mellitus; Z13.220 Encounter for screening for lipoid disorders
CPT/HCPCS: 36415; 80048; 80061; 82306; 84450; 84460; 90471; 90656; 96127; 99395

== ENCOUNTER 2024-05-06 10:59 | Outpatient (AMB) | payer OTHER, SELFPAY ==
[2024-05-06 11:44] VITALS: BP 110/70; PULSE 80; O2SAT 100; BMI 30.4
--- NOTE | 2024-05-06 11:44 | A.OFFPC_ITS ---
Vital Signs 05/06/24 11:44 Height 5 ft 2 in Weight 166 lb BMI 30.4 BP 110/70 Blood Pressure Location Lt brachial Position Sitting Pulse 80 Pulse Source Pulse Oximeter Pulse Oximetry (%) 100 Oxygen Delivery Method Room Air Intake Visit Reasons: Annual PE Intake Note: Pt is here today for her PE: Last papsmear 11/03/23 Allergies No Known Allergies [No Known Allergies*] Allergy (Verified 05/06/24 12:22) Medication List - Last Reconciled 05/06/24 by Oralia Youngblood MD No Known Home Meds Tobacco use date assessed: 05/06/24 Dental Screening Dental Screen Date: 05/06/24 Did you have a dental visit in the last 12 months?: No Did you have a dental problem in the last 6 months where you did not have access to dental care?: No Was dental information given to patient?: Patient declined [facility] Medical History Menorrhagia Constipated Pelvic pain History of anemia Vitamin D deficiency Muscle strain of right upper back Fatigue Surgical History Hx of tubal ligation Family History Other No pertinent family history in first degree relatives Social History Housing: House Alcohol intake: unknown Patient Tobacco Use Status: Never used Tobacco e-Cigarette/Vaping Use: Never Used Current occupational status: employed Cognitive needs: No Hearing needs: No Vision needs: No Female Reproductive History Menstrual Age of Menarche: 7 Questionnaire PHQ-9 Over the last 2 weeks, how often have you been bothered by any of the following problems? 1. Little interest or pleasure in doing things: not at all 2. Feeling down, depressed, or hopeless: not at all 3. Trouble falling or staying asleep, or sleeping too much: not at all 4. Feeling tired or having little energy: more than half the days 5. Poor appetite or overeating: not at all 6. Feeling bad about yourself - or that you are a failure or have let yourself or your family down: not at all 7. Trouble concentrating on things, such as reading the newspaper or watching television: not at all 8. Moving or speaking so slowly that other people could have noticed. Or the opposite - being so fidgety or restless that you have been moving around a lot more than usual: not at all 9. Thoughts that you would be better off or of hurting yourself in some way: not at all Total score: 2 Source: Developed by Drs. José Miguel Barrow, Alyssa Yo, Sarath Bhardwaj and colleagues, with an educational jessica from [employer]. Thrive Questionnaire Date Thrive assessed: 04/24/23 I am a: Patient What is your living situation today?: I have a steady place to live Within the past 12 months, did the food you bought not last and you didn't have the money to get more?: Never true Within the past 12 months, did you worry whether your food would run out before you got money to buy more?: Never true Do you have trouble paying for medicines?: No Do you have trouble getting transportation to medical appointments?: No Do you have trouble paying your heating and electricity bill?: No Do you have trouble taking care of your child, family member or friend?: No Do you have trouble with day-to-day activities such as bathing, preparing meals, shopping, managing finances, etc.?: No Are you currently unemployed and looking for a job?: No Are you interested in more education?: No Please select the resources that you would like help with: None Currently or been in a relationship where the following occur: No concerns reported THRIVE Score: 0 AUDIT C Alcohol Use Questionnaire (AUDIT-C) 1. How often do you have a drink containing alcohol?: Never Total Score: 0 BRADEN-7 AMB Questionnaire BRADEN-7 Date BRADEN - 7 assessed: 04/24/23 Feeling nervous, anxious, or on edge: 0 = Not at all Not being able to stop or control worryin = Not at all Worrying too much about different things: 0 = Not at all Trouble relaxin = Not at all Being so restless that it is hard to sit still: 0 = Not at all Becoming easily annoyed or irritable: 0 = Not at all Feeling afraid as if something awful might happen: 0 = Not at all Total BRADEN-7 score (0-4 normal; 5-9 mild; 10-14 moderate; 15-21 severe): 0 Source: Developed by Drs. José Miguel Barrow, Alyssa Yo, Sarath Bhardwaj and colleagues, with an educational jessica from [employer]. Physical exam (Primary Care) Vital Signs: Last Vital Signs Pulse 80 05/06/24 11:44 BP 110/70 05/06/24 11:44 Pulse Ox 100 05/06/24 11:44 Oxygen Delivery Method Room Air 05/06/24 11:44 BMI result Body Mass Index 30.4 Tobacco/Smoking Status: Tobacco use Status Tobacco use date assessed 05/06/24 05/06/24 11:45 Patient Tobacco Use Status Never used Tobacco 05/06/24 11:44 e-Cigarette/Vaping Use Never Used 05/06/24 11:44 PHQ-9: PHQ-9 Score PHQ-9: Total score 2 05/06/24 12:43 Thrive Assessment: Date of Thrive Assessment Date Thrive assessed 04/24/23 05/06/24 11:44 Currently or been in a relationship where the following occur: No concerns reported Office Procedures Flu Questionnaire Does the patient have a severe egg allergy?: No Does the patient have severe life threatening allergies?: No Does the patient have a fever or illness today?: No Has the patient ever had Guillain-Cherokee Syndrome?: No Has the patient ever had any past reaction to a flu shot?: No Immunizations Fluarix Triv 6302-3896 (PF) 45 mcg (15 mcg x 3)/0.5 mL IM syringe Performing Provider: Oralia Youngblood MD Performing Location: [facility] Administered by: EFRAIN Tran on 05/06/24 12:46 Dose Route Admin Location Dispensed Lot Number Expiration Date [facility] Senior Administrative Assistant 0.5 mL IM Left Deltoid 0.5 mL [id number] 11/18/24 [id number] [employer] VIS Given Date VIS Provided VIS Publication Date 05/06/24 Single Vaccine 20 Eligibility Eligibility Date Funding Source Not [facility] Eligible 05/06/24 Private Coding Level of Care Code Est Pt Prev Care 18-39y(80502) Diagnoses Vitamin D deficiency E55.9 Constipation, unspecified constipation type K59.00 Constipation type: unspecified constipation type Encounter for counseling regarding advance directives Z71.89 Annual visit for general adult medical examination with abnormal findings Z00. Need for lipid screening Z13.220 Assessment & Plan Assessment & Plan (1) Vitamin D deficiency: Code(s): E55.9 - Vitamin D deficiency, unspecified Category: Medical (2) Constipated: Code(s): K59.00 - Constipation, unspecified Category: Medical Qualifiers: Constipation type: unspecified constipation type Qualified Code(s): K59.00 - Constipation, unspecified (3) Encounter for counseling regarding advance directives: Code(s): Z71.89 - Other specified counseling (4) Annual visit for general adult medical examination with abnormal findings: Code(s): Z00.01 - Encounter for general adult medical examination with abnormal findings (5) Need for lipid screening: Code(s): Z13.220 - Encounter for screening for lipoid disorders Orders: Orders Basic Metabolic Panel Fasting Today E55.9 - Vitamin D deficiency, unspecified, K59.00 - Constipation, unspecified, Z00.01 - Encounter for general adult medical examination with abnormal findings, Z13.1 - Encounter for screening for diabetes mellitus, Z13.220 - Encounter for screening for lipoid disorders, Z71.89 - Other specified counseling Alanine Aminotransferase Today E55.9 - Vitamin D deficiency, unspecified, K 59.00 - Constipation, unspecified, Z00.01 - Encounter for general adult medical examination with abnormal findings, Z13.1 - Encounter for screening for diabetes mellitus, Z13.220 - Encounter for screening for lipoid disorders, Z71.89 - Other specified counseling Aspartate Amino Transferase Today E55.9 - Vitamin D deficiency, unspecified, K59.00 - Constipation, unspecified, Z00.01 - Encounter for general adult medical examination with abnormal findings, Z13.1 - Encounter for screening for diabetes mellitus, Z13.220 - Encounter for screening for lipoid disorders, Z71.89 - Other specified counseling Lipid Panel Today E55.9 - Vitamin D deficiency, unspecified, K59.00 - Constipation, unspecified, Z00.01 - Encounter for general adult medical examination with abnormal findings, Z13.1 - Encounter for screening for diabetes mellitus, Z13.220 - Encounter for screening for lipoid disorders, Z71.89 - Other specified counseling Vitamin D 25-OH Total Today E55.9 - Vitamin D deficiency, unspecified, K59.00 - Constipation, unspecified, Z00.01 - Encounter for general adult medical examination with abnormal findings, Z13.1 - Encounter for screening for diabetes mellitus, Z13.220 - Encounter for screening for lipoid disorders, Z71.89 - Other specified counseling Influenza [id number] Immunization Today Z23 - Encounter for immunization Medications: New Fluarix Triv [id number] (PF) (flu vacc [id number] 6mos up(PF)) 0.5 mL IM ONCE 0.5 mL 0RF NS Z23 - Encounter for immunization Refilled sennosides (Senna Laxative) 8.6 mg PO BEDTIME PRN 20 tabs 0RF constipation docusate sodium 100 mg PO DAILY 30 caps 3RF
== END 2024-05-06 12:45 | disposition home or self-care (01) ==
PROVIDERS: PCP Internal Medicine; Visit Provider Internal Medicine
DX: Z23 Encounter for immunization (principal)

== ENCOUNTER 2024-11-20 14:03 | Outpatient (AMB) | payer OTHER, SELFPAY ==
--- NOTE | 2024-11-20 14:08 | A.OFFVIS_ITS ---
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 Approx 2 months of bleeding. Has stopped now since last Monday. Normal hx of periods. Took a test x1 week ago, came back negative. Nurseryman Assistant Required: Yes Nurseryman Assistant Language: Housing Liaison Services: Nurseryman Assistant Present (in person) Nurseryman Assistant Name: Claudia MonkEFRAIN maki Information Interpreted: clinical only Senior Staff Accountant: Senior Staff Accountant Present (Yahaira ) Accompanied by: Self / Same As Patient Allergies No Known Allergies (No Known Allergies*) Allergy (Verified 11/20/24 14:14) Is last menstrual period known: Yes Last menstrual period: 10/25/24 Post menopausal: No Patient : No HPI Comments Details: Patient is a premenopausal woman presenting for annual examination. 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 In October bled x 18d. She reports pelvic pain, worse on right sided. She denies any urinary symptoms. Currently is sexually active. History of tubal ligation. UPT is negative today. STD testing offered, she accepts, incl. blood work. She tries to eat healthy, no regular exercise due to fatigue. Denies family history of breast, ovarian or colon cancer. Last pap smear 2023, negative. [facility] Medical History Menorrhagia Constipated Pelvic pain History of anemia Vitamin D deficiency Muscle strain of right upper back Fatigue Surgical History Hx of tubal ligation Family History Other No pertinent family history in first degree relatives Social History Housing: House Alcohol intake: unknown Patient Tobacco Use Status: Never used Tobacco e-Cigarette/Vaping Use: Never Used Patient : No Current occupational status: employed Cognitive needs: No Hearing needs: No Vision needs: No Female Reproductive History Menstrual Age of Menarche: 7 Duration of menses: other (ended November 11 ) Date of last menstrual period: 10/25/24 control method: permanent sterilization Total pregnancies: 3 Full term: 3 Date of last pap smear: 11/02/23 (negative pap smear, negative hpv ) Review of Systems Const All systems reviewed & are unremarkable except as noted in HPI and below Reports as per HPI Eyes Reports no additional complaints ENT Reports no additional complaints Card Reports no additional complaints Resp Reports no additional complaints GI Reports as per HPI and Reports no additional complaints Reports as per HPI Musc Reports no additional complaints Skin/Breast Reports as per HPI Neuro Reports no additional complaints Psych Reports no additional complaints Endo Reports no additional complaints Hubert/Lymph Reports no additional complaints Aller/Immun Reports no additional complaints Physical Exam Vital Signs: Last Vital Signs BP 112/74 11/20/24 14:20 BMI result Body Mass Index 31.8 Const General: cooperative, healthy appearing, no acute distress, well developed and alert Orientation/consciousness: patient oriented x3 HEENT Head: Yes normal to inspection Eyes General: appearance normal, both eyes and all related structures Neck Neck: Yes normal visual inspection Thyroid: Thyroid normal Chest Chest palpation & inspection: normal inspection of the chest and other (no puckering, dimpling, peau de orange, retraction, discharge, masses) Breast/axilla inspection: normal inspection of the breasts Breast/axilla palpation: normal palpation of the breasts Resp Effort & Inspection: normal respiratory effort GI Inspection: Yes normal to inspection Palpation (GI): Soft to palpation Rectal Exam - Female: deferred General: Yes bladder normal to palpation External Female Exam: normal external appearance and normal appearance of the urethra Speculum Exam - Vagina: normal appearance of the vagina, normal palpation and normal vaginal discharge Speculum Exam - Cervix: normal appearance of the cervix and normal palpation Bimanual exam- vagina & uterus: normal bimanual exam, normal palpation, uterine size normal, bladder normal to palpation, normal palpation and non-tender Bimanual Exam- Adnexa, other: no masses and Other (Slightly tender on left side) Skin General skin exam: no rashes or lesions noted Rashes: no rashes Neuro General: patient oriented x3 Cognition (Neuro): normal cognition Extrem General: Yes normal to inspection Psych Attitude: cooperative Thought process: Normal thought process present Results AMB Test Urine AMB Test Urine Negative Last Edit by Yahaira Guerra LPN on 11/20/24 14:24 Assessment & Plan Assessment & Plan (1) Abnormal uterine bleeding (AUB): Code(s): N93.9 - Abnormal uterine and vaginal bleeding, unspecified Category: Medical Plan: Discuss workup for AUB to include pelvic ultrasound, cervical cultures, lab work including CBC and TSH. Total time I personally spent on visit and management today: ?20 minutes. Time spent included review of pertinent office notes in the electronic health record; review of laboratory and imaging results; review of personal family medical history; performing physical exam; discussing diagnosis and plan of care with the patient; documenting the encounter in the EMR. (2) Encounter for well woman exam with routine gynecological exam: Code(s): Z01.419 - Encounter for gynecological examination (general) (routine) without abnormal findings Category: Medical Plan Discussed: Current recommendations for pap smears per ASCCP guidelines. Breast awareness and periodic breast exams. Maintain a healthy lifestyle including a well balanced diet and routine exercise. Advised to complete her lab work for her vitamin-D deficiency. Stressed importance of taking vitamin-D therapy. Patient verbalizes understanding and agrees to the plan of care. She was given opportunity to ask questions and all questions were answered to the best of my ability. RTO in one year for annual information security analyst examination. This note is constructed using voice recognition software. While every effort has been made to ensure accuracy, warehouse sorter errors may have been included. Orders: Orders US pelvic and transvaginal Today N93.9 - Abnormal uterine and vaginal bleeding, unspecified Syphilis Screen Today Z20.2 - Contact with and (suspected) exposure to inf ections with a predominantly sexual mode of transmission Complete Blood Count no Diff Today N93.9 - Abnormal uterine and vaginal bleeding, unspecified Thyroid Stimulating Hormone Today N92.1 - Excessive and frequent menstruation with irregular cycle HIV Ab/Ag Today Z20.2 - Contact with and (suspected) exposure to infections with a predominantly sexual mode of transmission Hepatitis C Antibody Reflex Today Z20.2 - Contact with and (suspected) exposure to infections with a predominantly sexual mode of transmission Hepatitis B Core Antibody Today Z20.2 - Contact with and (suspected) exposure to infections with a predominantly sexual mode of transmission CT NG by PCR Vag/Cerv Today N93.9 - Abnormal uterine and vaginal bleeding, unspecified Bacterial Vaginosis Panel Today N93.9 - Abnormal uterine and vaginal bleeding, unspecified Coding Level of Care Code Est Pt Level 2 (60613) Est Pt Prev Care 18-39y(09195) Diagnoses Abnormal uterine bleeding (AUB) N93.9 Encounter for well woman exam with routine gynecological exam Z01.419
[2024-11-20 14:20] VITALS: BP 112/74; BMI 31.8
== END 2024-11-20 14:53 | disposition home or self-care (01) ==
LOC: HO.HWS 14:03
PROVIDERS: PCP Internal Medicine; Visit Provider Advanced Practice Midwife
DX: Z01.419 Encounter for gynecological examination (general) (routine) without abnormal findings (principal); N93.9 Abnormal uterine and vaginal bleeding, unspecified
CPT/HCPCS: 99212; 99395; 99459

== ENCOUNTER 2024-11-20 14:03 | Outpatient (REF) | payer OTHER, SELFPAY ==
[2024-11-20 21:04] LABS: Bacterial Vaginosis PCR NEGATIVE (Negative); Candida Group PCR NOT DETECTED (Not Detect); Candida glab krusei PCR NOT DETECTED (Not Detect); Trichomonas vaginalis PCR NOT DETECTED (Not Detect)
[2024-11-20 22:37] LABS: CT PCR NOT DETECTED (Not Detect.); NG PCR NOT DETECTED (Not Detect.)
== END 2024-11-20 14:04 | disposition home or self-care (01) ==
LOC: HO.LNP 14:03
PROVIDERS: PCP Internal Medicine; Visit Provider Advanced Practice Midwife
DX: Z01.411 Encounter for gynecological examination (general) (routine) with abnormal findings (principal); N93.9 Abnormal uterine and vaginal bleeding, unspecified; N92.1 Excessive and frequent menstruation with irregular cycle; E55.9 Vitamin D deficiency, unspecified; Z20.2 Contact with and (suspected) exposure to infections with a predominantly sexual mode of transmission
CPT/HCPCS: 81515; 87491; 87591; 99212; 99395

== ENCOUNTER 2024-11-21 | Outpatient (REF) | payer OTHER, SELFPAY ==
--- NOTE | ~2024-11-21 | US_ITS ---
EXAMINATION: US PELVIS TRANSABDOMINAL AND TRANSVAGINAL HISTORY: N93.9 - Abnormal uterine and vaginal bleeding, unspecified COMPARISON: Comparison is made with the prior examination dated 01/12/2023. TECHNIQUE: Transabdominal and endovaginal real-time 2D can-scale ultrasound was performed. FINDINGS: Uterus: The uterus is normal in size, measuring 9.4 x 4.9 x 5.9 cm. Myometrium has a normal echotexture. No fibroids are identified. Endometrium: The endometrial stripe is thickened and heterogeneous in appearance, measuring 26 mm in thickness. There are nabothian cysts in the cervix. Right ovary: The right ovary measures 3.4 x 2.4 x 1.8 cm. The right ovary is normal in size and echotexture. There is a 1.4 x 1.0 x 0.8 cm cyst. Left ovary: The left ovary measures 3.5 x 2.3 x 8.6 cm. The left ovary is normal in size and echotexture. There is a 3.1 x 1.8 x 2.3 cm cyst. Pelvic fluid: none. US/US pelvic and transvaginal IMPRESSION: Thickened endometrial stripe measuring up to 26 mm in thickness. Hysteroscopy or tissue sampling is suggested. Electronically signed by: José Miguel Stanley MD 11/21/2024 03:45 PM EDT
[2024-11-21 15:17] LABS: Hematocrit 35.7 % (37.0-47.0); Hemoglobin 11.6 g/dl (12.0-16.0); Mean Corpuscular HGB Conc 32.5 g/dl (31.0-35.0); Mean Corpuscular Hemoglobin 27.4 pg (27.0-33.0); Mean Corpuscular Volume 84.4 fL (80.0-98.0); NRBC Abs Auto 0.000 X10*3/uL (0.0-0.012); NRBC Pct Auto 0.0 /100WBC (0.0-0.2); Platelet Count 324 X10*3/uL (160-400); Red Blood Count 4.23 X10*6/uL (4.20-5.50); White Blood Count 6.7 X10*3/uL (4.8-10.8)
[2024-11-21 16:32] LABS: Thyroid Stimulating Hormone 1.04 uIU/mL (0.32-4.0)
[2024-11-22 03:51] LABS: Syphilis Screen Nonreactive (Nonreactive)
[2024-11-22 04:08] LABS: HBc Num1 0.08 S/CO (0.00-0.79); HIV Num 1 0.04 S/CO (0.00-0.99); ~HepC Num1 0.12 S/CO (0.00-0.79); ~Hepatitis C Antibody Nonreactive (Nonreactive)
== END 2024-11-21 00:01 | disposition home or self-care (01) ==
LOC: HO.US
PROVIDERS: PCP Internal Medicine; Visit Provider Advanced Practice Midwife
DX: Z11.4 Encounter for screening for human immunodeficiency virus [HIV] (principal); Z11.59 Encounter for screening for other viral diseases; Z11.3 Encounter for screening for infections with a predominantly sexual mode of transmission; Z20.2 Contact with and (suspected) exposure to infections with a predominantly sexual mode of transmission; N92.1 Excessive and frequent menstruation with irregular cycle; N93.9 Abnormal uterine and vaginal bleeding, unspecified; E55.9 Vitamin D deficiency, unspecified
CPT/HCPCS: 36415; 76830; 76856; 82306; 84443; 85027; 86704; 86780; 86803; 87389

== ENCOUNTER → 2024-11-21 14:48 | Outpatient (BNV) | payer OTHER, SELFPAY | PROVIDERS: PCP Internal Medicine; Visit Provider Radiology Diagnostic Radiology | DX: N93.9 Abnormal uterine and vaginal bleeding, unspecified (principal) | CPT/HCPCS: 76830; 76856 ==

== ENCOUNTER 2024-12-05 09:32 | Outpatient (AMB) | payer OTHER, SELFPAY ==
[2024-12-05 09:49] VITALS: BP 112/64; BMI 31.8
--- NOTE | 2024-12-05 09:49 | A.OFFVIS_ITS ---
Vital Signs 12/05/24 09:49 Height 5 ft 2 in Weight 174 lb BMI 31.8 BP 112/64 Intake Visit Reasons: Ultrasound follow up Supervisor Major Appliance Assembly Required: Yes Supervisor Major Appliance Assembly Language: Industrial Pipefitter Journeyman Services: Supervisor Major Appliance Assembly Present (in person) Supervisor Major Appliance Assembly Name: Claudia ZUNIGA Information Interpreted: non-clinical & clinical Water Pollution Scientist: Water Pollution Scientist Present Accompanied by: Self / Same As Patient Allergies No Known Allergies (No Known Allergies*) Allergy (Verified 12/05/24 09:52) Is last menstrual period known: Yes HPI Comments Details: Patient is here today to [facility] US results. History of AUB. Labs: 11.6/35.7, TSH- 1.04. History of tubal ligation. [facility] Medical History Thickened endometrium Abnormal uterine bleeding (AUB) Menorrhagia Constipated Pelvic pain History of anemia Vitamin D deficiency Muscle strain of right upper back Fatigue Surgical History Hx of tubal ligation Family History Other No pertinent family history in first degree relatives Social History Housing: House Alcohol intake: unknown Patient Tobacco Use Status: Never used Tobacco e-Cigarette/Vaping Use: Never Used Current occupational status: employed Cognitive needs: No Hearing needs: No Vision needs: No Female Reproductive History Menstrual Age of Menarche: 7 Review of Systems Const All systems reviewed & are unremarkable except as noted in HPI and below Endo Reports no additional complaints Physical Exam Vital Signs: Last Vital Signs BP 112/64 12/05/24 09:49 BMI result Body Mass Index 31.8 Const General: cooperative, healthy appearing and no acute distress Psych Appearance: well kempt Attitude: cooperative Thought process: Normal thought process present Results Reviewed Results Reviewed: [address] [address] Ultrasound Report Signed Patient: Flori Caro MR#: [id number] : 1990 Acct:[id number] Age/Sex: 34 / F ADM Date: 11/20/24 Loc: HO.US Attending Dr: Erika Woodard CNM Ordering Physician: Erika Woodard CNM Date of Service: 11/21/24 Procedure(s): US pelvic and transvaginal Accession Number(s): [id number] cc: Oralia Youngblood MD; Erika Woodard CNM~ EXAMINATION: US PELVIS TRANSABDOMINAL AND TRANSVAGINAL HISTORY: N93.9 - Abnormal uterine and vaginal bleeding, unspecified COMPARISON: Comparison is made with the prior examination dated 01/12/2023. TECHNIQUE: Transabdominal and endovaginal real-time 2D can-scale ultrasound was performed. FINDINGS: Uterus: The uterus is normal in size, measuring 9.4 x 4.9 x 5.9 cm. Myometrium has a normal echotexture. No fibroids are identified. Endometrium: The endometrial stripe is thickened and heterogeneous in appearance, measuring 26 mm in thickness. There are nabothian cysts in the cervix. Right ovary: The right ovary measures 3.4 x 2.4 x 1.8 cm. The right ovary is normal in size and echotexture. There is a 1.4 x 1.0 x 0.8 cm cyst. Left ovary: The left ovary measures 3.5 x 2.3 x 8.6 cm. The left ovary is normal in size and echotexture. There is a 3.1 x 1.8 x 2.3 cm cyst. Pelvic fluid: none. US/US pelvic and transvaginal IMPRESSION: Thickened endometrial stripe measuring up to 26 mm in thickness. Hysteroscopy or tissue sampling is suggested. Electronically signed by: José Miguel Stanley MD 11/21/2024 03:45 PM EDT Dictated By: José Miguel Stanley MD Signed By: <Electronically signed by José Miguel Stanley MD in OV> 11/21/24 1545 DD/ 1521 TD/TT: 11/21/24 1541 Machine Adjuster Helper: Assessment & Plan Assessment & Plan (1) Abnormal uterine bleeding (AUB): Code(s): N93.9 - Abnormal uterine and vaginal bleeding, unspecified Category: Medical Plan: Discussed: Recommendation for endometrial biopsy to rule out any abnormal endometrial cells including atypia, precancer and cancer. Treatment options-recommend a Mirena IUD for therapeutic purposes. Mirena booklet given for review. EMB procedure reviewed anticipatory guidance-advised to take 3 ibuprofen with food and fluids 1 hour before her appointment. Appointment to be scheduled prior to her leaving the department today. The patient expressed understanding and agreement with the plan of care. All of her questions and concerns were addressed to the best of my ability. (2) Thickened endometrium: Code(s): R93.89 - Abnormal findings on diagnostic imaging of other specified body struct ures Category: Medical Plan Reviewed ultrasound findings- IMPRESSION: Thickened endometrial stripe measuring up to 26 mm in thickness. Hysteroscopy or tissue sampling is suggested. Recommendations for endometrial biopsy. The patient expressed understanding and agreement with the plan of care. All of her questions and concerns were addressed to the best of my ability. This note is constructed using voice recognition software. While every effort has been made to ensure accuracy, expander errors may have been included. Coding Level of Care Code Est Pt Level 3 (58499) Diagnoses Abnormal uterine bleeding (AUB) N93.9 Thickened endometrium R93.89
== END 2024-12-05 10:23 | disposition home or self-care (01) ==
LOC: HO.HWS 09:32
PROVIDERS: PCP Internal Medicine; Visit Provider Advanced Practice Midwife
DX: N93.9 Abnormal uterine and vaginal bleeding, unspecified (principal); R93.89 Abnormal findings on diagnostic imaging of other specified body structures
CPT/HCPCS: 99213

== ENCOUNTER → 2024-12-05 09:32 | Outpatient (BNVA) | payer OTHER, SELFPAY | PROVIDERS: PCP Internal Medicine; Visit Provider Advanced Practice Midwife | DX: R93.89 Abnormal findings on diagnostic imaging of other specified body structures (principal); N93.9 Abnormal uterine and vaginal bleeding, unspecified | CPT/HCPCS: 99212 ==

== ENCOUNTER 2024-12-18 08:30 | Outpatient (AMB) | payer OTHER, SELFPAY ==
--- NOTE | 2024-12-18 08:36 | A.OFFVIS_ITS ---
Intake Visit Reasons: EMB Allergies No Known Allergies (No Known Allergies*) Allergy (Verified 12/05/24 09:52) HPI Comments Details: Patient is here for a EMB procedure due to history of AUB and thickened endometrium on ultrasound. Patient reports bleeding this month for about 15 days, currently bleeding, reports fatigue. H&H November 21-11.6/35.7. History of vitamin-D deficiency, currently taking supplements. [facility] Medical History Thickened endometrium Abnormal uterine bleeding (AUB) Menorrhagia Constipated Pelvic pain History of anemia Vitamin D deficiency Muscle strain of right upper back Fatigue Surgical History Hx of tubal ligation Family History Other No pertinent family history in first degree relatives Social History Housing: House Alcohol intake: unknown Patient Tobacco Use Status: Never used Tobacco e-Cigarette/Vaping Use: Never Used Current occupational status: employed Cognitive needs: No Hearing needs: No Vision needs: No Female Reproductive History Menstrual Age of Menarche: 7 Review of Systems Const All systems reviewed & are unremarkable except as noted in HPI and below Physical Exam Const General: cooperative, healthy appearing and no acute distress Orientation/consciousness: patient oriented x3 GI Inspection: Yes normal to inspection Palpation (GI): Soft to palpation and Other GI palpation findings present (Nontender) Rectal Exam - Female: visual inspection normal General: Yes bladder normal to palpation External Female Exam: normal appearance of the urethra Speculum Exam - Vagina: normal appearance of the vagina, normal palpation, normal vaginal discharge and vaginal bleeding Speculum Exam - Cervix: normal appearance of the cervix and normal palpation Bimanual exam- vagina & uterus: normal bimanual exam, normal palpation, uterine size normal, bladder normal to palpation, normal palpation, uterine shape normal and non-tender Bimanual Exam- Adnexa, other: normal adnexae OB/external & speculum: vaginal bleeding Neuro General: patient oriented x3 Office Procedures Endometrial Biopsy Details: The patient is here today for an endometrial biopsy due to AUB to rule out any pathology including atypical, hyperplasia or cancer cells of the uterus. She was counseled regarding anticipatory guidance for the procedure including the risks for pain, infection, bleeding, perforation, potential injury to the tissues may include the cervix, uterus, tubes, bladder and bowels. These injuries may include further treatment and evaluation including surgery, blood transfusions, antibiotics, hospitalizations and anesthesia. Permanent injury and scarring can occur. She was consented for the procedure, and the consent forms were signed. She is agreeable to have the procedure today. All questions were answered. Endometrial Biopsy Procedure: The patient was placed in the dorsal lithotomy position and a sterile speculum inserted. Using aseptic technique for the procedure. The cervix was cleansed with Betadine x 3 swabs. A single toothed tenaculum was placed on the cervix for stabilization and the uterus was sounded to 9 cm with a 4mm pipelle, and tissue sample obtained. Minimal bleeding was observed. The tissue sample was placed in formalin in a patient labeled container by staff assisting and sent to the pathology department for processing and interpretation. The patient tolerate the procedure well and was in good condition when leaving the department. Endometrial Biopsy Post Procedure Care: Nothing in the vagina including: tampons, douching or intimacy until all the bleeding has subsided. There may be some post procedure bleeding for several days, this bleeding is usually light and may turn to a light brown or pink color. Mild cramps may occurs. Nothing in the vaginal including: tampons, douching, or intimacy until all the bleeding has subsided. You may take an over the counter mild analgesic such as Tylenol or Advil (if no allergies) per the manufactures recommendation on dosing, frequency, and follow the directions completely. Call the office if any: fever (over 100.4), flu like symptoms, abdominal pain (worse than cramping), foul smelling, infected appearing vaginal discharge, or heavy bleeding. If indicated: Use condoms to prevent and STI's, and only after the bleeding has stopped completely. Return to the office in 2 weeks for results and plan of care. This note is constructed using voice recognition software. While every effort has been made to ensure accuracy, wrapper operator errors may have been included. [id number] Biopsy Results Reviewed Results Reviewed: [address] [address] Ultrasound Report Signed Patient: Flori Caro MR#: [id number] : 1990 Acct:[id number] Age/Sex: 34 / F ADM Date: 11/20/24 Loc: HO.US Attending Dr: Erika Woodard CNM Ordering Physician: Erika Woodard CNM Date of Service: 11/21/24 Procedure(s): US pelvic and transvaginal Accession Number(s): [id number] cc: Oralia Youngblood MD; Erika Woodard CNM~ EXAMINATION: US PELVIS TRANSABDOMINAL AND TRANSVAGINAL HISTORY: N93.9 - Abnormal uterine and vaginal bleeding, unspecified COMPARISON: Comparison is made with the prior examination dated 01/12/2023. TECHNIQUE: Transabdominal and endovaginal real-time 2D can-scale ultrasound was performed. FINDINGS: Uterus: The uterus is normal in size, measuring 9.4 x 4.9 x 5.9 cm. Myometrium has a normal echotexture. No fibroids are identified. Endometrium: The endometrial stripe is thickened and heterogeneous in appearance, measuring 26 mm in thickness. There are nabothian cysts in the cervix. Right ovary: The right ovary measures 3.4 x 2.4 x 1.8 cm. The right ovary is normal in size and echotexture. There is a 1.4 x 1.0 x 0.8 cm cyst. Left ovary: The left ovary measures 3.5 x 2.3 x 8.6 cm. The left ovary is normal in size and echotexture. There is a 3.1 x 1.8 x 2.3 cm cyst. Pelvic fluid: none. US/US pelvic and transvaginal IMPRESSION: Thickened endometrial stripe measuring up to 26 mm in thickness. Hysteroscopy or tissue sampling is suggested. Electronically signed by: José Miguel Stanley MD 11/21/2024 03:45 PM EDT Dictated By: José Miguel Stanley MD Signed By: <Electronically signed by José Miguel Stanley MD in OV> 11/21/24 1545 DD/ 1521 TD/TT: 11/21/24 1541 Help Desk Supervisor: Assessment & Plan Assessment & Plan (1) Abnormal uterine bleeding (AUB): Code(s): N93.9 - Abnormal uterine and vaginal bleeding, unspecified Category: Medical (2) Thickened endometrium: Code(s): R93.89 - Abnormal findings on diagnostic imaging of other specified body structures Category: Medical Plan: Discussed findings, and discussed benefits of Mirena IUD for therapeutic purposes. Plan Counseled regarding ultrasound, labs. Endometrial biopsy completed see henry avelar notes. Follow up in 2 weeks for results. Discussed AUB treatment recommended Mirena IUD patient has already been given the brochure add previous visit and is still uncertain what she wants to due to control her cycles. Plan CBC today. Encouraged hydration adequate food intake and to not be out in the hot heat wave. The patient expressed understanding and agreement with the plan of care. All of her questions and concerns were addressed to the best of my ability. This note is constructed using voice recognition software. While every effort has been made to ensure accuracy, wrapper operator errors may have been included. Orders: Orders Surgical Today N93.9 - Abnormal uterine and vaginal bleeding, unspecified Complete Blood Count no Diff Today N93.9 - Abnormal uterine and vaginal bleeding, unspecified Coding Level of Care Code Procedure Only Diagnoses Abnormal uterine bleeding (AUB) N93.9 Thickened endometrium R93.89 CPT Codes Endometrial Biopsy - CPT: 71795-[id number] Biopsy ([id number])
== END 2024-12-18 10:06 | disposition home or self-care (01) ==
LOC: HO.HWS 08:30
PROVIDERS: PCP Internal Medicine; Visit Provider Advanced Practice Midwife
DX: N93.9 Abnormal uterine and vaginal bleeding, unspecified (principal); R93.89 Abnormal findings on diagnostic imaging of other specified body structures
CPT/HCPCS: 58100

== ENCOUNTER 2024-12-18 08:30 | Outpatient (REF) | payer OTHER, SELFPAY ==
[2024-12-18 10:25] LABS: Hematocrit 35.1 % (37.0-47.0); Hemoglobin 11.6 g/dl (12.0-16.0); Mean Corpuscular HGB Conc 33.0 g/dl (31.0-35.0); Mean Corpuscular Hemoglobin 28.3 pg (27.0-33.0); Mean Corpuscular Volume 85.6 fL (80.0-98.0); NRBC Abs Auto 0.000 X10*3/uL (0.0-0.012); NRBC Pct Auto 0.0 /100WBC (0.0-0.2); Platelet Count 334 X10*3/uL (160-400); Red Blood Count 4.10 X10*6/uL (4.20-5.50); White Blood Count 5.8 X10*3/uL (4.8-10.8)
== END 2024-12-18 08:31 | disposition home or self-care (01) ==
LOC: HO.LAB 08:30
PROVIDERS: PCP Internal Medicine; Visit Provider Advanced Practice Midwife
DX: R53.83 Other fatigue (principal); N93.9 Abnormal uterine and vaginal bleeding, unspecified; R93.89 Abnormal findings on diagnostic imaging of other specified body structures; Z98.51 Tubal ligation status; Z79.899 Other long term (current) drug therapy
CPT/HCPCS: 36415; 58100; 85027; 88305

== ENCOUNTER 2025-01-01 10:28 | Outpatient (AMB) | payer OTHER, SELFPAY ==
--- NOTE | 2025-01-01 10:29 | A.OFFVIS_ITS ---
Intake Visit Reasons: EMB Results Bias Cutting Machine Operator Required: Yes Bias Cutting Machine Operator Language: Medical Advisor Services: Bias Cutting Machine Operator Present (JustBook) Bias Cutting Machine Operator Name: Sophy #[id number] Information Interpreted: clinical only Regulatory Agency Director: Regulatory Agency Director Present Accompanied by: Self / Same As Patient Allergies No Known Allergies (No Known Allergies*) Allergy (Verified 12/05/24 09:52) Is last menstrual period known: Yes HPI Comments Details: Patient is here today for a follow up endometrial biopsy results, history of AUB. She reports nausea, cramping and pain in ovaries. No bleeding w/Aygestin within 2 days of use. History of tubal ligation, interested in hysterectomy. [facility] Medical History Endometrial polyp Thickened endometrium Abnormal uterine bleeding (AUB) Menorrhagia Constipated Pelvic pain History of anemia Vitamin D deficiency Muscle strain of right upper back Fatigue Surgical History Hx of tubal ligation Family History Other No pertinent family history in first degree relatives Social History Housing: House Alcohol intake: unknown Patient Tobacco Use Status: Never used Tobacco e-Cigarette/Vaping Use: Never Used Current occupational status: employed Cognitive needs: No Hearing needs: No Vision needs: No Female Reproductive History Menstrual Age of Menarche: 7 Review of Systems Const All systems reviewed & are unremarkable except as noted in HPI and below Endo Reports no additional complaints Physical Exam Const General: cooperative, healthy appearing and no acute distress Psych Appearance: well kempt Attitude: cooperative Thought process: Normal thought process present Results Reviewed Results Reviewed: Surgical Pathology [id number] ___ Name: Flori Caro Age/Sex: 34/F Attending: Erika Woodard CNM : 1990 Submitted by: Erika Woodard CNM Copies to: Oralia Youngblood MD MR #: [id number] Status: DEP REF Collected: 12/18/24 Location: .[facility] Received: 12/18/24 Diagnosis Endometrium, biopsy: Disordered proliferative endometrium with patchy breakdown; fragments with features of polyp; no atypia identified. Clinical History Abnormal uterine bleeding Microscopic Description Microscopic sections reviewed. Material Received Endometrial biopsy Gross Description Received in formalin labeled ?endo bx? is a 2.5 x 2.2 x 0.5-1.0 cm aggregate of multiple irregular and tubular cast fragments of congested and hemorrhagic herrera-pink and red-maroon tissue along with red- maroon clotted blood, submitted in toto in cassettes A1 and A2. CEDS Copies To Oralia Youngblood MD [facility] Primary Care, [address] [id number] Erika Woodard CNM [facility] Women's Services [address] [place] [address] Drive [address] [place], [place] [id number] NOTE: Unless otherwise stated, all tissue is formalin-fixed and paraffin- embedded. Some or all of the immunohistochemical tests reported herein may have been developed and their performance characteristics determined by [facility]. They have not been cleared or approved by the U.S. Food and Drug Administration (FDA). However, the FDA has determined that such clearance or approval is not necessary. This laboratory is certified under the Clinical Laboratory Improvement Amendments of 1988 (CLIA) as qualified to perform high complexity clinical laboratory testing. Patient: Flori Caro Age/Sex: 34[facility]F [id number] MR#: [id number] Page 1 of 2 Assessment & Plan Assessment & Plan (1) Abnormal uterine bleeding (AUB): Code(s): N93.9 - Abnormal uterine and vaginal bleeding, unspecified Category: Medical Plan: AUB and endometrial polyps discussed in detail. Plan of care as noted below. (2) Endometrial polyp: Code(s): N84.0 - Polyp of corpus uteri Category: Medical Plan Discussed: EMB results. Diagnosis Endometrium, biopsy: Disordered proliferative endometrium with patchy breakdown; fragments with features of polyp; no atypia identified. Recommend a hysteroscopy for complete removal of polyp tissue. It is not recommended for hysterectomy to be completed at this time. Hysteroscopy versus hysterectomy process reviewed major surgery versus minor, risks benefits. Pre procedure planning anticipatory guidance reviewed for hysteroscopy, appointment to be made with Dr. Esquivel for consult. She is interested in having a Mirena placed while under anesthesia. The patient expressed understanding and agreement with the plan of care. All of her questions and concerns were addressed to the best of my ability. This note is constructed using voice recognition software. While every effort has been made to ensure accuracy, palletiser operator errors may have been included. Coding Level of Care Code Est Pt Level 3 (38430) Diagnoses Abnormal uterine bleeding (AUB) N93.9 Endometrial polyp N84.0
== END 2025-01-01 11:04 | disposition home or self-care (01) ==
LOC: HO.HWS 10:29
PROVIDERS: PCP Internal Medicine; Visit Provider Advanced Practice Midwife
DX: N93.9 Abnormal uterine and vaginal bleeding, unspecified (principal); N84.0 Polyp of corpus uteri
CPT/HCPCS: 99213

== ENCOUNTER → 2025-01-01 10:28 | Outpatient (BNVA) | payer OTHER, SELFPAY | PROVIDERS: PCP Internal Medicine; Visit Provider Advanced Practice Midwife | DX: Z71.2 Person consulting for explanation of examination or test findings (principal); N93.9 Abnormal uterine and vaginal bleeding, unspecified; N84.0 Polyp of corpus uteri | CPT/HCPCS: 99212 ==

== ENCOUNTER 2025-01-30 07:46 | Outpatient (AMB) | payer OTHER, SELFPAY ==
--- NOTE | 2025-01-30 08:00 | MHC.OFFVIS ---
Intake Visit Reasons: Hysteroscopy consult /AUB ,Mirena insertion Imaging Specialist Required: Yes Imaging Specialist Language: Hoop Flaring Machine Operator Services: Imaging Specialist Present (in person) Imaging Specialist Name: EFRAIN Doyle Information Interpreted: non-clinical & clinical Train Planner: Train Planner Present (EFRAIN Doyle) Accompanied by: Self / Same As Patient Allergies No Known Allergies (No Known Allergies*) Allergy (Verified 01/30/25 08:10) Is last menstrual period known: Yes Last menstrual period: 03/19/20 Post menopausal: No Patient : No Do you need a note to return to daycare/school/sports/work: Yes (for surgery on monday) HPI Comments Details: Presenting referred from Erika Woodard CNM regarding abnormal uterine bleeding. The following workup was done.: H&H= 11.6/35.1 TSH, GC and chlamydia were negative. Endometrial biopsy pathology showed the following: Disordered proliferative endometrium with patchy breakdown; fragments with features of polyp; no atypia identified. Co testing was done in 11/12 was negative. Pelvic ultrasound showed the following: Uterus: The uterus is normal in size, measuring 9.4 x 4.9 x 5.9 cm. Myometrium has a normal echotexture. No fibroids are identified. Endometrium: The endometrial stripe is thickened and heterogeneous in appearance, measuring 26 mm in thickness. There are nabothian cysts in the cervix. Right ovary: The right ovary measures 3.4 x 2.4 x 1.8 cm. The right ovary is normal in size and echotexture. There is a 1.4 x 1.0 x 0.8 cm cyst. Left ovary: The left ovary measures 3.5 x 2.3 x 8.6 cm. The left ovary is normal in size and echotexture. There is a 3.1 x 1.8 x 2.3 cm cyst. Pelvic fluid: none. [facility] Medical History (Updated 01/30/25 @ 08:25 by Maxwell Esquivel MD) Endometrial polyp Thickened endometrium Abnormal uterine bleeding (AUB) Menorrhagia Constipated Pelvic pain History of anemia Vitamin D deficiency Muscle strain of right upper back Fatigue Surgical History Hx of tubal ligation Family History Other No pertinent family history in first degree relatives Social History Housing: House Alcohol intake: unknown Patient Tobacco Use Status: Never used Tobacco e-Cigarette/Vaping Use: Never Used Current occupational status: employed Cognitive needs: No Hearing needs: No Vision needs: No Female Reproductive History Menstrual Age of Menarche: 7 Date of last menstrual period: 03/19/20 Total pregnancies: 2 Full term: 2 Review of Systems Card Reports as per HPI and Reports no additional complaints Resp Reports as per HPI and Reports no additional complaints GI Reports as per HPI and Reports no additional complaints Reports as per HPI Physical Exam Const General: cooperative, healthy appearing and comfortable Resp Effort & Inspection: normal respiratory effort Auscultation: clear to auscultation bilaterally Percussion: percussion normal Cardio Palpation: normal PMI Rate: regular rate Rhythm: regular rhythm Heart sounds: no murmurs and no rubs Peripheral pulses: Peripheral pulses 2+ throughout GI Inspection: Yes normal to inspection Palpation (GI): Soft to palpation, nontender, no guarding, not rigid and No hepatosplenomegaly present Percussion: Yes normal to percussion Auscultation: normal bowel sounds Rectal Exam - Female: deferred Assessment & Plan Assessment & Plan (1) Abnormal uterine bleeding (AUB): Comment: Endometrial polyp by emb pah Code(s): N93.9 - Abnormal uterine and vaginal bleeding, unspecified Category: Medical Plan: Discussed with the patient the results of the workup including endometrial pathology showing fragments of endometrial polyp, recommended hysteroscopy D&C possible polypectomy/myomectomy. Discussed with the patient the procedure , all benefits and risks including but not limited to inability to complete the procedure , insufficient endometrial tissue for a complete evaluation of the endometrial cavity , bleeding, infection, possible need for blood transfusion with all its risk ( HIV,syphilis, Hepatitis, anaphylaxis shock, others..), injury to bladder, rectum, possible need for laparoscopy/laparotomy or hysterectomy. The patient verbalized understanding and signed the consent. Instructions given the patient to stay NPO after midnight the day prior to the procedure and to take only the specific medication (s) discussed the morning of the surgical procedure and to schedule a 2 week postoperative appointment Coding Level of Care Code Est Pt Level 3 (78554) Diagnoses Abnormal uterine bleeding (AUB) N93.9
== END 2025-01-30 08:32 | disposition home or self-care (01) ==
LOC: HO.HWS 07:47
PROVIDERS: PCP Internal Medicine; Visit Provider Obstetrics & Gynecology
DX: N93.9 Abnormal uterine and vaginal bleeding, unspecified (principal)
CPT/HCPCS: 99213

== ENCOUNTER → 2025-01-30 07:46 | Outpatient (BNVA) | payer OTHER, SELFPAY | PROVIDERS: PCP Internal Medicine; Visit Provider Obstetrics & Gynecology | DX: N93.9 Abnormal uterine and vaginal bleeding, unspecified (principal) | CPT/HCPCS: 99212 ==

== ENCOUNTER 2025-02-21 05:51 | Day surgery (SDC) | payer OTHER, SELFPAY ==
[2025-02-19 13:06] VITALS: BMI 31.8
--- NOTE | 2025-02-19 13:31 | HO.ANESPROP2 ---
Documented by User: Juliette Carver NP 02/19/25 13:31 HPI - Anesthesia Eval Consult details Narrative: 34 yr old female for D&C Hysteroscopy,possible myomectomy,possible polypectomy PMFSH Active Problems Active Problems: All Active Problems Encounter for well woman exam with routine gynecological exam (Acute) HSV-1 (herpes simplex virus 1) infection (Acute) Constipated (Acute) Subconjunctival hemorrhage of left eye (Acute) Low Back Pain (Acute) Dyspareunia, female (Acute) Endometrial polyp (Acute) Thickened endometrium (Acute) Abnormal uterine bleeding (AUB) (Acute) Pelvic pain (Acute) History of anemia (Acute) Vitamin D deficiency (Acute) Muscle strain of right upper back (Acute) Fatigue (Acute) Past Medical History Medical History Endometrial polyp Thickened endometrium Abnormal uterine bleeding (AUB) Menorrhagia Pelvic pain History of anemia Vitamin D deficiency Muscle strain of right upper back Fatigue Family History Family History Other No pertinent family history in first degree relatives Surgical History Surgical History Hx of tubal ligation Social History Social History Housing: House Alcohol intake: unknown Patient Tobacco Use Status: Never used Tobacco e-Cigarette/Vaping Use: Never Used Have you been hit, kicked, punched, or otherwise hurt by someone within the past year? If so, by whom?: No Are you DNR?: No Advance Directives: No Advance Directives Information Provided: Yes Patient : No Current occupational status: employed Cognitive needs: No Hearing needs: No Vision needs: No Meds Allergies Allergy/AdvReac Type Severity Reaction Status Date / Time No Known Allergies (No Known Allergy Verified 01/30/25 08:10 Allergies*) Home Medications ?Medication ?Instructions ?Recorded ?Confirmed ?Last Taken ?Type No Known Home Meds 02/19/25 02/19/25 Unknown History Exam Height,Weight and Vital Signs: Height 5 ft 2 in Weight 78.925 kg Airway Adult Head Mouth w/Numbe Teeth:  1. Missing Documented by User: Glen Cabrera MD 02/21/25 07:23 [facility] Past Medical History Medical History Endometrial polyp Thickened endometrium Abnormal uterine bleeding (AUB) Menorrhagia Pelvic pain History of anemia Vitamin D deficiency Muscle strain of right upper back Fatigue Family History Family History Other No pertinent family history in first degree relatives Family history of problems with anesthesia: No Surgical History Surgical History Hx of tubal ligation History of Problems with Anesthesia: No Social History Social History Housing: House Alcohol intake: unknown Patient Tobacco Use Status: Never used Tobacco e-Cigarette/Vaping Use: Never Used Have you been hit, kicked, punched, or otherwise hurt by someone within the past year? If so, by whom?: No Are you DNR?: No Advance Directives: No Advance Directives Information Provided: Yes Patient : No Current occupational status: employed Cognitive needs: No Hearing needs: No Vision needs: No Meds Allergies Allergy/AdvReac Type Severity Reaction Status Date / Time No Known Allergies (No Known Allergy Verified 01/30/25 08:10 Allergies*) Home Medications ?Medication ?Instructions ?Recorded ?Confirmed ?Last Taken ?Type No Known Home Meds 02/19/25 02/19/25 Unknown History Exam Exam Date and Time: 02/21/2025 Airway Mallampati Class: I TM Dist: >3cm Neck ROM: Full Adult Head Mouth w/Numbe Teeth:  1. Missing Loose/Missing/Broken Teeth: Yes Heart: RRR Lungs: ctab vesicular Other: <4 mets Assessment and Plan Assessment Anesthesia Assessment: Anesthesia Plan Discussed Final Anesthetic Review Family History of Problems with Anesthesia: No History of Problems with Anesthesia: No NPO: Yes ASA Class: II Final Preanesthetic Review: No Changes in Pt Med Stat, Meds/Allgs Chart Reviewed, Consent Obtained/Reviewed and Anes Risks/Benef Reviewed Patient Risk: Low Procedure Risk: Low Anesthetic Plan Anesthetic Plan: GA Disposition: Standard PACU
[2025-02-21] VITALS (7 sets, daily range): BP systolic 119–133; BP diastolic 80–93; PULSE 87–103; RESP 16–17; TEMP 36.2–36.4; O2SAT 95–100; BMI 32.4
[2025-02-21 06:07] LABS: UPreg QC Valid YES
[2025-02-21] MEDS: Lactated Ringers 1,000 ML 100 ML IVCONT (06:14)
--- NOTE | 2025-02-21 07:26 | MHC.SHP ---
Pre-Procedural Eval Section A - 24 Hr Update-Section A only Date of Service: 02/21/25 The patient is an INPATIENT: No Changes since office visit: No Cold of Flu in the past 2 weeks, No New Medical Problems, No Changes in Medication and No Patient answered all questions The patient has been examined within 24 hours of the surgical procedure. The History & Physical has been completed within 30 days and I have reviewed it.: Yes Section B - Complete if H&P > 30 days Chief Complaint: Abnormal uterine and vaginal bleeding, Allergies: Allergies Allergy/AdvReac Type Severity Reaction Status Date / Time No Known Allergies (No Known Allergy Verified 01/30/25 08:10 Allergies*) Plan Diagnosis/Plan: Unchanged I have reviewed the history and physical and performed a pertinent physical examination on my patient. No changes have occurred unless specified. Time Spent With Patient Time: Total time managing care of this patient today ____ minutes.
--- NOTE | 2025-02-21 08:03 | P.BOP_ITS ---
Brief Operative Note Date of Service: 02/21/25 Pre-op diagnosis: AUB, endometrial polyp on EMB pathology Post-op diagnosis: same (Endometrial polyp) Procedure: Hysteroscopy D&C, Polypectomy Surgeon: Maxwell Esquivel MD Anesthesia: GLMA Was an Dyslexia Teacher used for this Procedure?: No Estimated blood loss (mL): 0 Pathology: other (Endometrial Scrapping. Polyp) Condition: stable Disposition: PACU
--- NOTE | 2025-02-21 08:03 | W.PM.OPN ---
Operative Note Operative Note Date of Service: 02/21/25 Narrative: Preop Diagnosis: AUB, Endometrial polyp by EMB pathology Operation: Diagnostic Hysteroscopy, Dilataion & Curettage and polypectomy Post Op Diagnosis: Endometrial Polyp QBL: Minimal Anesthesia: GLMA Surgeon: Maxwell Esquivel MD Drug Safety Physician: None Complication: None Pathology: Endometrial Scrapings, Endometrial polyp Procedure: The patient was put in the dorsal lithotomy position, scrubbed, and draped in the usual manner. A sterile speculum was inserted in the patient's vagina. The anterior lip of the cervix was grasped with a single tooth tenaculum. The cervix was dilated up to 5 mm, then the scope was inserted in the patient's uterus. Inspection revealed endometrial polyp. The Myosure Reach device was used; it was introduced through the operative channel and polypectomy done with no complications. The scope was then taken out from the uterine cavity, sharp curettings was carried on with minimal to moderate amount of tissues retrieved. At the end of the procedure, all instruments were taken out of the patient uterine and vaginal cavity. The single tooth tenaculum was removed and homeostasis was assured using pressure,. The patient tolerated the procedure well and was transferred to the PACU in a stable condition.
[2025-02-21] MEDS: oxyCODONE HCl Immed Release 5 MG TABLET PO (08:34)
== END 2025-02-21 09:16 | disposition home or self-care (01) ==
PROVIDERS: Nurse Practitioner; PCP Internal Medicine; Visit Provider Obstetrics & Gynecology
PROC: 0UDB8ZZ Extraction of Endometrium, Via Natural or Artificial Opening Endoscopic (ICD-10-PCS; CPT 58558; principal; 2025-02-21 07:30)
DX: N39.9 Disorder of urinary system, unspecified (principal); N84.0 Polyp of corpus uteri; N92.0 Excessive and frequent menstruation with regular cycle; R53.83 Other fatigue; E55.9 Vitamin D deficiency, unspecified; Z98.51 Tubal ligation status
CPT/HCPCS: 58558; 81025; 88305; J1100; J2003; J2371; J2405; J2704; J3010

== ENCOUNTER → 2025-02-21 05:51 | Outpatient (BNV) | payer OTHER, SELFPAY | PROVIDERS: PCP Internal Medicine; Visit Provider Obstetrics & Gynecology | DX: N84.0 Polyp of corpus uteri (principal) | CPT/HCPCS: 58558 ==

== ENCOUNTER 2025-03-19 08:29 | Outpatient (AMB) | payer OTHER, SELFPAY ==
--- NOTE | 2025-03-19 08:32 | A.OFFVIS_ITS ---
Intake Visit Reasons: post op Allergies No Known Allergies (No Known Allergies*) Allergy (Verified 03/19/25 08:32) HPI Comments Details: The patient is presenting post hysteroscopy D&C no complaints minimal vaginal bleeding no feverishness chills or abdominal pain. The pathology showed the following: A. Endometrium, curettage: Disordered proliferative endometrium; no atypia or hyperplasia identified. B. Endometrium, polypectomy: Fragments of endometrial polyp; no atypia identified The following workup was done.: H&H= 11.6/35.1 TSH, GC and chlamydia were negative. Endometrial biopsy pathology showed the following: Disordered proliferative endometrium with patchy breakdown; fragments with features of polyp; no atypia identified Co testing was done in 11/12 was negative. Pelvic ultrasound showed the following: IMPRESSION: Thickened endometrial stripe measuring up to 26 mm in thickness. Hysteroscopy or tissue sampling is suggested. [facility], [facility] Medical History Endometrial polyp Thickened endometrium Abnormal uterine bleeding (AUB) Menorrhagia Pelvic pain History of anemia Vitamin D deficiency Muscle strain of right upper back Fatigue Surgical History Hx of tubal ligation Family History Other No pertinent family history in first degree relatives Social History Housing: House Alcohol intake: unknown Patient Tobacco Use Status: Never used Tobacco e-Cigarette/Vaping Use: Never Used Current occupational status: employed Cognitive needs: No Hearing needs: No Vision needs: No Female Reproductive History Menstrual Age of Menarche: 7 Review of Systems Const All systems reviewed & are unremarkable except as noted in HPI and below Reports as per HPI and Reports no additional complaints GI Reports no additional complaints Reports no additional complaints Assessment & Plan Assessment & Plan (1) Abnormal uterine bleeding (AUB): Comment: Endometrial polyp s/p Hysteroscopic polypectomy Code(s): N93.9 - Abnormal uterine and vaginal bleeding, unspecified Category: Medical Plan: Discussed with the patient the intraoperative finding, and the results of the pathology and the results of the work up done and options of treatment including Lysteda, BCP's, Mirena IUD, endometrial ablation and hysterectomy. All pros, cons, risks and benefits if each option was discussed with the patient and the patient decided to think about it and get back to us. All questions answered the patient verbalized understanding. Coding Level of Care Code Est Pt Level 3 (97210) Diagnoses Abnormal uterine bleeding (AUB) N93.9
== END 2025-03-19 08:57 | disposition home or self-care (01) ==
LOC: HO.HWS 08:30
PROVIDERS: PCP Internal Medicine; Visit Provider Obstetrics & Gynecology
DX: N93.9 Abnormal uterine and vaginal bleeding, unspecified (principal)
CPT/HCPCS: 99213

== ENCOUNTER → 2025-03-19 08:29 | Outpatient (BNVA) | payer OTHER, SELFPAY | PROVIDERS: PCP Internal Medicine; Visit Provider Obstetrics & Gynecology | DX: N93.9 Abnormal uterine and vaginal bleeding, unspecified (principal) | CPT/HCPCS: 99212 ==

== ENCOUNTER 2025-04-30 08:59 | Outpatient (REF) | payer OTHER, SELFPAY ==
[2025-04-30 09:17] LABS: Hematocrit 34.8 % (37.0-47.0); Hemoglobin 10.7 g/dl (12.0-16.0); Mean Corpuscular HGB Conc 30.7 g/dl (31.0-35.0); Mean Corpuscular Hemoglobin 24.6 pg (27.0-33.0); Mean Corpuscular Volume 80.0 fL (80.0-98.0); NRBC Abs Auto 0.000 X10*3/uL (0.0-0.012); NRBC Pct Auto 0.0 /100WBC (0.0-0.2); Platelet Count 321 X10*3/uL (160-400); Red Blood Count 4.35 X10*6/uL (4.20-5.50); White Blood Count 5.7 X10*3/uL (4.8-10.8)
== END 2025-04-30 09:00 ==
LOC: HO.LAB 08:59
PROVIDERS: Visit Provider Obstetrics & Gynecology
DX: N93.9 Abnormal uterine and vaginal bleeding, unspecified (principal)
CPT/HCPCS: 36415; 85027

== ENCOUNTER 2025-05-01 14:07 | Outpatient (REF) | payer OTHER, SELFPAY ==
[2025-05-02 10:41] LABS: CT PCR NOT DETECTED (Not Detect.); NG PCR NOT DETECTED (Not Detect.)
== END 2025-05-01 14:08 | disposition home or self-care (01) ==
LOC: HO.LNP 14:07
PROVIDERS: PCP Internal Medicine; Visit Provider Obstetrics & Gynecology
DX: N93.9 Abnormal uterine and vaginal bleeding, unspecified (principal); Z20.2 Contact with and (suspected) exposure to infections with a predominantly sexual mode of transmission
CPT/HCPCS: 87491; 87591

== ENCOUNTER 2025-05-01 14:07 | Outpatient (AMB) | payer OTHER, SELFPAY ==
--- NOTE | 2025-05-01 14:12 | MHC.OFFVIS ---
Intake Visit Reasons: AUB [facility] Required: Yes [facility] Language: Veneer Joiner Services: [facility] Present [facility] Name: Claudia ZUNIGA Information Interpreted: non-clinical & clinical Cardiac Care Unit Nurse: Cardiac Care Unit Nurse Present (Claudia ZUNIGA) Accompanied by: Self / Same As Patient Allergies No Known Allergies (No Known Allergies*) Allergy (Verified 05/01/25 14:31) HPI Comments Details: Presenting complaining of irregular menstrual cycles associated with passage of blood clots. The following workup was done recently: H&H= 11.6/35.1 TSH, GC and chlamydia were negative. Endometrial biopsy pathology showed the following: Disordered proliferative endometrium with patchy breakdown; fragments with features of polyp; no atypia identified Hysteroscopy D&C polypectomy done, pathology showed following: A. Endometrium, curettage: Disordered proliferative endometrium; no atypia or hyperplasia identified. B. Endometrium, polypectomy: Fragments of endometrial polyp; no atypia identified Co testing was done in 11/12 was negative. Pelvic ultrasound showed the following: IMPRESSION: Thickened endometrial stripe measuring up to 26 mm in thickness. Hysteroscopy or tissue sampling is suggested. [facility] Medical History (Updated 05/01/25 @ 14:36 by Maxwell Esquivel MD) Endometrial polyp Thickened endometrium Abnormal uterine bleeding (AUB) Menorrhagia Pelvic pain History of anemia Vitamin D deficiency Muscle strain of right upper back Fatigue Surgical History Hx of tubal ligation Family History Other No pertinent family history in first degree relatives Social History Housing: House Alcohol intake: unknown Patient Tobacco Use Status: Never used Tobacco e-Cigarette/Vaping Use: Never Used Current occupational status: employed Cognitive needs: No Hearing needs: No Vision needs: No Female Reproductive History Menstrual Age of Menarche: 7 Office Procedures IUD Insert/Removal Details Details: The patient is presenting for Mirena IUD insertion Urine test was done in the office and was negative; All the contraindications were excluded. The following possible complications were discussed with the patient: Intrauterine , Ectopic , Sepsis, Pelvic Infection, Irregular Bleeding and Amenorrhea, Perforation, Expulsion, Ovarian Cysts, Breast Cancer, The following adverse effects were discussed with the patient: alteration of menstrual bleeding pattern, including: unscheduled uterine bleeding decreased uterine bleeding increased scheduled uterine bleeding female genital tract bleeding ,amenorrhea , genital discharge , vulvovaginitis , breast pain , benign ovarian cyst and associated complications , dysmenorrhea , Gastrointestinal disorders abdominal/pelvic pain, headache/migraine , back pain , acne , depression Alternative options were discussed with the patient including but not limited: control pills, patch, NuvaRing, Depo-medroxyprogesterone acetate, Nexplanon, copper IUD, sterilization, vasectomy, others The procedure was explained in detail to patient , at the end patient signed the informed consent obtained. A no touch technique was used throughout the procedure. A speculum was placed into vagina and cervix was cleaned with betadine). A tenaculum was placed. A plastic sound was advanced through the external and internal os until it reached the fundus of the uterus, the depth was 8 cm. The sound was then withdrawn. The IUD was loaded in a sterile manner and advanced into position. The string was visualized and cut to 3 cm. Tenaculum site hemostatic. All instruments removed from vagina. Patient tolerated the procedure well. NO complications were noted. Patient was instructed to call for fever over 100.4, significant pain unrelieved by Motrin, IUD expulsion, heavy bleeding, or abnormal discharge. In addition, the following clinical considerations were discussed with the patient to call for removal: A stroke or heart attack ,Very severe or migraine headaches ,Unexplained fever ,Yellowing of the skin or whites of the eyes, as these may be signs of serious liver problems , or suspected , Pelvic pain or pain during sex ,HIV positive seroconversion in herself or her partner , Possible exposure to sexually transmitted infections Unusual vaginal discharge or genital sores , severe vaginal bleeding or bleeding that lasts a long time, or if she misses a menstrual period, Inability to feel Mirena's threads Counseled the patient that the IUD does not protect against STI's, recommended use of condoms for the first 7 days post insertion and explained to the patient that condoms are recommended for patients at risk for sexually transmitted infections. Informed the patient that Mirena IUD is FDA approved for 8 years for contraception for 5 years for the treatment of heavy menses Instructed the patient to schedule a Follow up appointment in 4 to 6 weeks following insertion. This note was generated with a voice recognition program. Some errors may have been overlooked during the review of this note. Sometimes these errors may affect the content or meaning of a given sentence. 50064-JAE Insertion Procedure code (CPT) selection complete Office Meds Mirena 21 mcg/24 hr (up to 8 years) 52 mg intrauterine device Performing Provider: Maxwell Esquivel MD Performing Location: [facility] [place] [facility] Documented (not given) by: Maxwell Esquivel MD on 05/01/25 14:47 Dose Route Admin Location Dispensed Lot Number Expiration Date [facility] [place]NOTE 2] [employer] 1 device intrauterine ea Total Dispensed Waste n/a n/a Assessment & Plan Assessment & Plan (1) Abnormal uterine bleeding (AUB): Code(s): N93.9 - Abnormal uterine and vaginal bleeding, unspecified Category: Medical Plan: Discussed with the patient the results of the work up done and options of treatment including Lysteda, control pills, Mirena IUD, endometrial ablation and hysterectomy. All pros, cons, risks and benefits if each option was discussed with the patient and the patient decided to go ahead with Mirena IUD so a more detailed discussion about it was conducted including mechanism of action, risks (uterine perforation, infection, injury to bladder, bowel, displacement, and others) benefits (hypo menorrhea, amenorrhea, ...). GC/CT were taken and Mirena IUD insertion done, see procedure note . Orders: Orders AMB IUD Insertion/Removal - Practice Supplied Today N93.9 - Abnormal uterine and vaginal bleeding, unspecified Medications: New Mirena (levonorgestrel) 1 device intrauterine ONCE 1 ea 0RF NS N93.9 - Abnormal uterine and vaginal bleeding, unspecified Coding Level of Care Code Est Pt Level 3 (20899) Procedure Only Diagnoses Abnormal uterine bleeding (AUB) N93.9 CPT Codes Details - CPT: 05571-BFX Insertion ([id number])
== END 2025-05-01 16:27 | disposition home or self-care (01) ==
LOC: HO.HWS 14:08
PROVIDERS: PCP Internal Medicine; Visit Provider Obstetrics & Gynecology
DX: Z30.430 Encounter for insertion of intrauterine contraceptive device (principal); N93.9 Abnormal uterine and vaginal bleeding, unspecified; Z32.02 Encounter for pregnancy test, result negative
CPT/HCPCS: 58300; 99213

== ENCOUNTER 2025-05-13 20:32 | Emergency (ER) | payer OTHER, SELFPAY ==
[2025-05-13 20:34] VITALS: BP 141/73; PULSE 100; RESP 20; TEMP 36.8; O2SAT 98; BMI 32.9
[2025-05-13] MEDS: Diphth,Pertus(ACell),Tet Adult 0.5 ML SYRINGE IM (21:41)
[2025-05-13] MEDS: Lidocaine HCl 1%/Epi 1:100,000 10 ML VIAL INFILTRATI (21:44)
--- NOTE | 2025-05-13 22:45 | ED_ITS ---
HPI - General Adult General Chief complaint: Wound/Laceration Stated complaint: L index lac Time Seen by Provider: 05/13/25 21:22 Source: patient Limitations: no limitations History of Present Illness ED Provider: Dina Dominguez PA-C HPI narrative: 34-year-old female presents with left index finger laceration. Patient was trying to open a bag when she sliced the pad of the finger. Incident occurred yesterday, bleeding intermittent. Unclear if tetanus is up-to-date. Related Data Previous Rx's ?Medication ?Instructions ?Recorded ferrous sulfate 325 mg (65 mg 325 mg PO DAILY 30 days #30 tabs 04/30/25 iron) tablet,delayed release Allergies Allergy/AdvReac Type Severity Reaction Status Date / Time No Known Allergies (No Known Allergy Verified 05/13/25 20:39 Allergies*) Review of Systems Review of Systems: Yes all other systems are reviewed and are negative Constitutional: Constitutional: Denies fatigue and Denies fever(s) Musculoskeletal: Musculoskeletal: Denies arthralgias and Denies joint swelling Integumentary/Breasts: Skin/Breast: Reports wounds Endocrine: Endocrine: Denies fatigue PMFSH Past Medical History Attestation statement: The following information was validated with the patient. Medical History (Updated 05/13/25 @ 22:46 by MACARENA Stiles) Endometrial polyp Thickened endometrium Abnormal uterine bleeding (AUB) Menorrhagia Pelvic pain History of anemia Vitamin D deficiency Muscle strain of right upper back Fatigue Surgical History Hx of tubal ligation Family History Family History Other No pertinent family history in first degree relatives Social History Social History Housing: House Alcohol intake: unknown Patient Tobacco Use Status: Never used Tobacco e-Cigarette/Vaping Use: Never Used Advance Directives: No Advance Directives Information Provided: No Current occupational status: employed Cognitive needs: No Hearing needs: No Vision needs: No Physical Exam ED Vital Signs: Vital Signs - 24 hr 05/13/25 20:34 05/13/25 22:51 Temperature 98.3 F 98.3 F Pulse Rate 100 89 Respiratory Rate 20 16 Blood Pressure 141/73 H 0/0 L Pulse Oximetry 98 98 Oxygen Delivery Method Room Air Room Air BMI result Body Mass Index 32.9 Const Other: Alert Orientation/consciousness: patient oriented x3 Resp Effort & Inspection: normal respiratory effort Cardio Other: Normal peripheral perfusion Skin Other: Warm dry no rash Neuro General: patient oriented x3, gait normal, no focal motor deficits and CN's II- XI intact bilaterally Extrem Other: 2 cm linear laceration over the pad of the left 2nd digit, superficial, minimally bleeding while cleaning, Psych Other: Cooperative Medications Administered Discontinued Medications Generic Name Dose Route Start Last Admin Trade Name Freq PRN Reason Stop Dose Admin Diphtheria/Tetanus/Acell Pertussis 0.5 ml 05/13/25 21:35 05/13/25 21:41 Diphth,Pertus(Acell),Tet Adult 0.5 Ml Syringe IM 05/13/25 21:36 0.5 ml .ONCE ONE Administration Lidocaine/Epinephrine 10 ml 05/13/25 21:35 05/13/25 21:44 Lidocaine Hcl 1%/Epi 1:100,000 10 Ml Vial INFILTRATI 05/13/25 21:36 10 ml ONCE ONE Administration Procedures Laceration Laceration 1: Site: hand Side (If applicable): left Size (cm): 2 Description: linear Local Anesthetic: with epi Amount of anesthesia used (mL): 3 Pre-repair: irrigated extensively Skin layer closed with: nylon Size (cm): 4-0 Number of sutures: 4 Technique: simple, interrupted Medical Decision Making Medical Decision Making [facility] Narrative: 34-year-old female presents with left index finger laceration. Patient was trying to open a bag when she sliced the pad of the finger. Incident occurred yesterday, bleeding intermittent. Unclear if tetanus is up-to-date. No chronic issues History: Per patient I have considered the following differential diagnoses: Laceration, avulsion, nail bed injury, abrasion, excoriation Plan: This is a very simple laceration is superficial, we will repair at bedside, updating tetanus. No indication for imaging or labs Differential Diagnosis Differential Diagnoses: The differential diagnosis associated with the presentation includes See [facility] Admission/Observation Consideration of admission/observation: Escalation of care including admission/observation considered Not applicable Discharge Plan Discharge Clinical Impression: Laceration of left index finger Qualifiers: Encounter type: initial encounter Damage to nail status: without damage Foreign body presence: without foreign body Qualified Code(s): S61.211A - Laceration without foreign body of left index finger without damage to nail, initial encounter Patient Disposition: Home, Self-Care Instructions: Finger Laceration (ED) Additional Instructions: For stitches were used to repair the laceration. They can be removed in 1 week. You can return to the emergency room for suture removal, or you can follow up with your primary care. Your tetanus vaccine was updated it is valid for 10 years. See home care instructions, be sure to watch for evidence of infection. Signs of infection which include redness, swelling, warmth, pus draining from the site. If you develop any of these symptoms, seek medical attention. Prescriptions: No Action ferrous sulfate 325 mg (65 mg iron) tablet,delayed release (DR/EC) 325 mg PO DAILY 30 Days Qty: 30 0RF Interventions: ED Discharge Assessment Last Done: 05/13/25 22:51 Discharge Date/Time: 05/13/25 22:51 Print Language: Kazakh
[2025-05-13 22:51] VITALS: BP 0/0; PULSE 89; RESP 16; TEMP 36.8; O2SAT 98
== END 2025-05-13 22:51 | disposition home or self-care (01) ==
PROVIDERS: Emergency Provider Emergency Medicine; PCP Internal Medicine
DX: S61.211A Laceration without foreign body of left index finger without damage to nail, initial encounter (principal); W45.8XXA Other foreign body or object entering through skin, initial encounter; Y93.9 Activity, unspecified; Y92.9 Unspecified place or not applicable; Z23 Encounter for immunization
CPT/HCPCS: 12001; 90471; 90715; 99282; 99284; J2004